=== PATIENT | male | born 1965 | race Caucasian/White ===

== ENCOUNTER 2022-10-11 16:46 | Observation (INO) ==
--- NOTE | 2022-10-11 16:59 | Emergency Department Note ---
Impression & Plan Acute hyperglycemia, Hepatitis C, History of substance abuse, H/O insulin dependent diabetes mellitus, Suicidal ideations ED Provider Note NAME: CHELSY KC AGE: 57 SEX: M : 1965 ARRIVES VIA: Walk-In INFORMANT: Patient, ED PROVIDER(S): Fabrice Pratt MD CHIEF COMPLAINT: Increasing depression MEDICAL DECISION MAKING: Patient presents due to concern for suicidal ideation and depressed mood. Blood work was obtained. Patient was not deemed medically cleared and due to the patient's history of hep C and hyperglycemia. After further discussion with the psych director of casework I did speak with the hospitalist service [place] PA-C and Dr. Mckeon. Patient does have a normal white count H&H and platelet count. The patient's kidney function is unremarkable. BSG at 314 not DKA. LFTs grossly unremarkable. Urinalysis does show protein in the urine. Patient's urine drug screen is positive for meth MDMA and marijuana. COVID-negative. Prior /Outside records reviewed: None Differential diagnosis: Mood disorder, infection, hypoglycemia, electrolyte abnormalities, cardiac sources, intracerebral event, toxicologic, trauma, neurologic, as well as other pathologies. Diagnostics, as interpreted by me: ECG: Normal sinus rhythm, rate of 94, normal intervals, normal axis no ST elevations. Cardiac monitoring: An order was placed for continuous cardiac monitoring. The monitor shows a rate of with rhythm. Patient was placed on pulse oximetry Medical decision rules: None Imaging studies: See below HPI: Patient presents due to concern for increasing depression and suicidal ideation. The patient states that he has thought about going to where he knows where a bear lives and he would go agitate it in order to get himself killed. Patient has had a longstanding history of depression and substance abuse. 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 The patient states that he has been able to quit those habits cold turkey and had been in [place] but recently moved back to the area after a bad break-up and an issue with some land that he had owned. Patient does admit to increasing methamphetamine use as well as alcohol use. Patient does have a known history of diabetes and hepatitis. Patient states that he does not know how to give his insulin when the blood sugar can always be changing. Patient does admits to some generalized abdominal discomfort and has a known history of hep C. Patient has not sought any treatment. The patient currently does live in [place]. PAST MEDICAL HISTORY: See Below PAST SURGICAL HISTORY: See Below SOCIAL HISTORY: See Below HOME MEDICATIONS: See Below ALLERGIES: See Below VITALS: See Below PHYSICAL EXAMINATION: GENERAL: NAD, wearing a mask, non-toxic. EYE EXAM: Normal conjunctiva. PERRL, no anisocoria and EOM's grossly intact w/o pain. NECK: Supple, no nuchal rigidity, no adenopathy, non-tender. No signs of menin gismus. FROM of the neck with good chin to chest and neck extension. No stridor. LUNGS: Clear to auscultation. Normal chest wall mechanics. HEART: NSR, no MRG. ABDOMEN: Abdomen soft, non-tender, no masses, no rebound or guarding. BACK: No CVA TTP. SKIN: No rashes and no bruising. UPPER EXTREMITIES: Upper extremities are grossly normal. LOWER EXTREMITIES: Grossly normal, no edema. NEURO EXAM: A&O x3, cranial nerves II-XII grossly intact, normal speech, moves all 4 extremities. Past Med/Surg History Medical History H/O insulin dependent diabetes mellitus Hepatitis C History of substance abuse Surgical History S/P appendectomy Social History Smoking Status: Former smoker Hx Alcohol Use: Yes Alcohol type: beer and hard liquor Hx Substance Use: Yes Last Used Substance: Days (ago) Last Used Substance Other:: smokes marijuana daily and snorts methamphetamine frequently Substance Use Type Other:: heroin use in past Preferred Language: Telugu Communication Ability: Effective Mechanical Unit Repairer Required: No Beliefs That Will Affect Care: None Current Living Situation: Family Current Living Situation Comment: lives with son and family Other Information That Helps Us Care for You: No Feels Safe at Home: Yes Safety Concerns: Feels Safe At This Time Gender Identity: Male Assistive Devices: None Allergies Allergies Allergy/AdvReac Type Severity Reaction Status Date / Time No Known Allergies Allergy Verified 10/11/22 18:45 Home Meds Home Medications Medication Instructions Recorded Confirmed amlodipine 5 mg tablet 5 mg PO DAILY 10/11/22 10/11/22 caffeine 200 mg tablet 200 mg PO USEASDIRECTD PRN energy 10/11/22 10/11/22 escitalopram oxalate 10 mg tablet 10 mg PO DAILY 10/11/22 10/11/22 hydroxyzine HCl 50 mg tablet 50 mg PO HS 10/11/22 10/11/22 insulin glargine 100 unit/mL (3 50 unit subcut QAM 10/11/22 10/11/22 mL) subcutaneous pen (Basaglar KwikPen U-100 Insulin) polyethylene glycol 3350 17 17 g PO DAILY PRN Constipation 10/11/22 10/11/22 gram/dose oral powder (Miralax) Results & Data (ED) Vital Signs Vital Signs - 24 hr 10/11/22 16:48 10/11/22 19:00 Temperature 36.7 C Temperature Source Temporal Artery Scan Pulse Rate 98 H Pulse Rate [Finger] 89 Respiratory Rate 20 18 Respiratory Effort / Characteristics Non-Labored Non-Labored Respiratory Depth Normal Normal Respiratory Pattern Regular Blood Pressure 147/56 H Blood Pressure [Left Arm] 170/109 H Blood Pressure Mean 86 Blood Pressure Mean [Left Arm] 129 Pulse Oximetry 98 98 Oxygen Delivery Method Room Air Room Air Sepsis Recent Fever Within 48 Hours No Sepsis New/Unexplained Change in Mental Status N/A Sepsis Action Taken by Nursing No Action Required Home Medications Current Medication List: was personally reviewed by me Laboratory Data Attestation: I reviewed the patient's lab results. 10/11/22 17:12 10/11/22 17:12 Lab Results 10/11/22 10/11/22 10/11/22 Range/Units 17:05 17:05 17:05 WBC (4.8-10.8) K/ul RBC (4.70-6.10) M/uL Hgb (14.0-18.0) g/dl Hct (42.0-52.0) % MCV (80.0-100.0) fL MCH (25.0-34.0) pg MCHC (32.0-36.0) g/dL RDW Std Deviation (36.4-46.3) fL RDW Coeff of [place] (11.5-14.5) % Plt Count (130-400) K/uL MPV (9.4-12.4) fL Immature Gran % (Auto) % Neut % (Auto) % Lymph % (Auto) % [place] % (Auto) % Eos % (Auto) % Baso % (Auto) % Neut # (Auto) (1.40-6.50) K/uL Lymph # (Auto) (1.2-3.4) K/uL [place] # (Auto) (0.11-0.59) K/uL Eos # (Auto) (0-0.50) K/uL Baso # (Auto) (0-0.2) K/uL Immature Gran # (Auto) (0.01-0.20) K/uL ESR (0-20) mm/hr Sodium (136-145) mmol/L Potassium (3.5-5.1) mmol/L Chloride (98-107) mmol/L Carbon Dioxide (21-32) mmol/L Anion Gap (3-11) BUN (6-23) mg/dl Creatinine (0.6-1.4) mg/dl Est Cr Clr Drug Dosing Est GFR ( Amer) ml/min Est GFR (Non-Af Amer) ml/min BUN/Creatinine Ratio (10-20) Glucose (70-99(Fasting)) mg/dl Calcium (8.6-10.3) mg/dl Total Bilirubin (0.2-1.0) mg/dl AST (13-39) U/L ALT (7-52) U/L Alkaline Phosphatase (34-104) U/L C-Reactive Protein (0-0.5) mg/dl Total Protein (6.0-8.3) gm/dl Albumin (3.4-5.0) gm/dl Globulin (2.5-4.0) gm/dl Albumin/Globulin Ratio (0.9-2) Procalcitonin (0-0.5) ng/ml TSH (0.300-4.500) uIu/ml Urine Color Yellow Urine Appearance Clear (Clear) Urine pH 5.5 (4.5-7.5) Ur Specific [place] 1.037 H (1.000-1.030) Urine Protein 4+ H (Negative) Urine Glucose (UA) 3+ H (Negative) Urine Ketones Trace H (Negative) Urine Blood 1+ H (Negative) Urine Nitrite Negative (Negative) Urine Bilirubin Negative (Negative) Urine Urobilinogen Negative (Negative) Ur Leukocyte Esterase Negative (Negative) Urine WBC (Auto) 1-5 (0-5) /hpf Urine RBC (Auto) 5-10 H (0-4) /hpf U Hyaline Cast (Auto) 1-5 (0-5) /lpf U Epithel Cells (Auto) 10-20 H (0-5) /lpf Urine Bacteria (Auto) Negative (Negative) Salicylates (3.0-30) mg/dl Urine Opiates Screen Neg (Neg) Ur Methadone, Qual Neg (Neg) Acetaminophen (10-30) ug/ml Urine Barbiturates Neg (Neg) Ur Phencyclidine (PCP) Neg (Neg) U Amphetamin/Meth Scrn Pos H (Neg) MDMA (Ecstasy) Screen Pos H (Neg) U Benzodiazepines Scrn Neg (Neg) Ur Cocaine Metabolite Neg (Neg) U Marijuana (THC) Screen Pos H (Neg) Ethyl Alcohol mg/dL (<10.0) mg/dl SARS-CoV-2, RNA, NAAT NEGATIVE (NEGATIVE) 10/11/22 10/11/22 10/11/22 Range/Units 17:12 17:12 17:12 WBC 9.36 (4.8-10.8) K/ul RBC 5.90 (4.70-6.10) M/uL Hgb 16.5 (14.0-18.0) g/dl Hct 46.5 (42.0-52.0) % MCV 78.8 L (80.0-100.0) fL MCH 28.0 (25.0-34.0) pg MCHC 35.5 (32.0-36.0) g/dL RDW Std Deviation 39.5 (36.4-46.3) fL RDW Coeff of [place] 13.7 (11.5-14.5) % Plt Count 247 (130-400) K/uL MPV 10.2 (9.4-12.4) fL Immature Gran % (Auto) 0.4 % Neut % (Auto) 64.2 % Lymph % (Auto) 23.9 % [place] % (Auto) 8.1 % Eos % (Auto) 2.7 % Baso % (Auto) 0.7 % Neut # (Auto) 6.00 (1.40-6.50) K/uL Lymph # (Auto) 2.24 (1.2-3.4) K/uL [place] # (Auto) 0.76 H (0.11-0.59) K/uL Eos # (Auto) 0.25 (0-0.50) K/uL Baso # (Auto) 0.07 (0-0.2) K/uL Immature Gran # (Auto) 0.04 (0.01-0.20) K/uL ESR (0-20) mm/hr Sodium 136 (136-145) mmol/L Potassium 4.3 (3.5-5.1) mmol/L Chloride 102 (98-107) mmol/L Carbon Dioxide 29 (21-32) mmol/L Anion Gap 5 (3-11) BUN 27 H (6-23) mg/dl Creatinine 1.27 (0.6-1.4) mg/dl Est Cr Clr Drug Dosing Not Reportable Est GFR ( Amer) 71.7 ml/min Est GFR (Non-Af Amer) 61.9 ml/min BUN/Creatinine Ratio 21.3 H (10-20) Glucose 314 H* (70-99(Fasting)) mg/dl Calcium 9.7 (8.6-10.3) mg/dl Total Bilirubin 1.0 (0.2-1.0) mg/dl AST 25 (13-39) U/L ALT 40 (7-52) U/L Alkaline Phosphatase 105 H (34-104) U/L C-Reactive Protein < 0.50 (0-0.5) mg/dl Total Protein 7.1 (6.0-8.3) gm/dl Albumin 3.3 L (3.4-5.0) gm/dl Globulin 3.8 (2.5-4.0) gm/dl Albumin/Globulin Ratio 0.9 (0.9-2) Procalcitonin (0-0.5) ng/ml TSH 2.626 (0.300-4.500) uIu/ml Urine Color Urine Appearance (Clear) Urine pH (4.5-7.5) Ur Specific [place] (1.000-1.030) Urine Protein (Negative) Urine Glucose (UA) (Negative) Urine Ketones (Negative) Urine Blood (Negative) Urine Nitrite (Negative) Urine Bilirubin (Negative) Urine Urobilinogen (Negative) Ur Leukocyte Esterase (Negative) Urine WBC (Auto) (0-5) /hpf Urine RBC (Auto) (0-4) /hpf U Hyaline Cast (Auto) (0-5) /lpf U Epithel Cells (Auto) (0-5) /lpf Urine Bacteria (Auto) (Negative) Salicylates (3.0-30) mg/dl Urine Opiates Screen (Neg) Ur Methadone, Qual (Neg) Acetaminophen (10-30) ug/ml Urine Barbiturates (Neg) Ur Phencyclidine (PCP) (Neg) U Amphetamin/Meth Scrn (Neg) MDMA (Ecstasy) Screen (Neg) U Benzodiazepines Scrn (Neg) Ur Cocaine Metabolite (Neg) U Marijuana (THC) Screen (Neg) Ethyl Alcohol mg/dL (<10.0) mg/dl SARS-CoV-2, RNA, NAAT (NEGATIVE) 10/11/22 10/11/22 10/11/22 Range/Units 17:12 17:12 17:12 WBC (4.8-10.8) K/ul RBC (4.70-6.10) M/uL Hgb (14.0-18.0) g/dl Hct (42.0-52.0) % MCV (80.0-100.0) fL MCH (25.0-34.0) pg MCHC (32.0-36.0) g/dL RDW Std Deviation (36.4-46.3) fL RDW Coeff of [place]el[place] (11.5-14.5) % Plt Count (130-400) K/uL MPV (9.4-12.4) fL Immature Gran % (Auto) % Neut % (Auto) % Lymph % (Auto) % [place] % (Auto) % Eos % (Auto) % Baso % (Auto) % Neut # (Auto) (1.40-6.50) K/uL Lymph # (Auto) (1.2-3.4) K/uL [place] # (Auto) (0.11-0.59) K/uL Eos # (Auto) (0-0.50) K/uL Baso # (Auto) (0-0.2) K/uL Immature Gran # (Auto) (0.01-0.20) K/uL ESR 40 H (0-20) mm/hr Sodium (136-145) mmol/L Potassium (3.5-5.1) mmol/L Chloride (98-107) mmol/L Carbon Dioxide (21-32) mmol/L Anion Gap (3-11) BUN (6-23) mg/dl Creatinine (0.6-1.4) mg/dl Est Cr Clr Drug Dosing Est GFR ( Amer) ml/min Est GFR (Non-Af Amer) ml/min BUN/Creatinine Ratio (10-20) Glucose (70-99(Fasting)) mg/dl Calcium (8.6-10.3) mg/dl Total Bilirubin (0.2-1.0) mg/dl AST (13-39) U/L ALT (7-52) U/L Alkaline Phosphatase (34-104) U/L C-Reactive Protein (0-0.5) mg/dl Total Protein (6.0-8.3) gm/dl Albumin (3.4-5.0) gm/dl Globulin (2.5-4.0) gm/dl Albumin/Globulin Ratio (0.9-2) Procalcitonin (0-0.5) ng/ml TSH (0.300-4.500) uIu/ml Urine Color Urine Appearance (Clear) Urine pH (4.5-7.5) Ur Specific [place] (1.000-1.030) Urine Protein (Negative) Urine Glucose (UA) (Negative) Urine Ketones (Negative) Urine Blood (Negative) Urine Nitrite (Negative) Urine Bilirubin (Negative) Urine Urobilinogen (Negative) Ur Leukocyte Esterase (Negative) Urine WBC (Auto) (0-5) /hpf Urine RBC (Auto) (0-4) /hpf U Hyaline Cast (Auto) (0-5) /lpf U Epithel Cells (Auto) (0-5) /lpf Urine Bacteria (Auto) (Negative) Salicylates < 3.0 L (3.0-30) mg/dl Urine Opiates Screen (Neg) Ur Methadone, Qual (Neg) Acetaminophen < 3 L (10-30) ug/ml Urine Barbiturates (Neg) Ur Phencyclidine (PCP) (Neg) U Amphetamin/Meth Scrn (Neg) MDMA (Ecstasy) Screen (Neg) U Benzodiazepines Scrn (Neg) Ur Cocaine Metabolite (Neg) U Marijuana (THC) Screen (Neg) Ethyl Alcohol mg/dL < 10.0 (<10.0) mg/dl SARS-CoV-2, RNA, NAAT (NEGATIVE) 10/11/22 Range/Units 17:12 WBC (4.8-10.8) K/ul RBC (4.70-6.10) M/uL Hgb (14.0-18.0) g/dl Hct (42.0-52.0) % MCV (80.0-100.0) fL MCH (25.0-34.0) pg MCHC (32.0-36.0) g/dL RDW Std Deviation (36.4-46.3) fL RDW Coeff of [place] (11.5-14.5) % Plt Count (130-400) K/uL MPV (9.4-12.4) fL Immature Gran % (Auto) % Neut % (Auto) % Lymph % (Auto) % [place] % (Auto) % Eos % (Auto) % Baso % (Auto) % Neut # (Auto) (1.40-6.50) K/uL Lymph # (Auto) (1.2-3.4) K/uL [place] # (Auto) (0.11-0.59) K/uL Eos # (Auto) (0-0.50) K/uL Baso # (Auto) (0-0.2) K/uL Immature Gran # (Auto) (0.01-0.20) K/uL ESR (0-20) mm/hr Sodium (136-145) mmol/L Potassium (3.5-5.1) mmol/L Chloride (98-107) mmol/L Carbon Dioxide (21-32) mmol/L Anion Gap (3-11) BUN (6-23) mg/dl Creatinine (0.6-1.4) mg/dl Est Cr Clr Drug Dosing Est GFR ( Amer) ml/min Est GFR (Non-Af Amer) ml/min BUN/Creatinine Ratio (10-20) Glucose (70-99(Fasting)) mg/dl Calcium (8.6-10.3) mg/dl Total Bilirubin (0.2-1.0) mg/dl AST (13-39) U/L ALT (7-52) U/L Alkaline Phosphatase (34-104) U/L C-Reactive Protein (0-0.5) mg/dl Total Protein (6.0-8.3) gm/dl Albumin (3.4-5.0) gm/dl Globulin (2.5-4.0) gm/dl Albumin/Globulin Ratio (0.9-2) Procalcitonin 0.09 (0-0.5) ng/ml TSH (0.300-4.500) uIu/ml Urine Color Urine Appearance (Clear) Urine pH (4.5-7.5) Ur Specific [place] (1.000-1.030) Urine Protein (Negative) Urine Glucose (UA) (Negative) Urine Ketones (Negative) Urine Blood (Negative) Urine Nitrite (Negative) Urine Bilirubin (Negative) Urine Urobilinogen (Negative) Ur Leukocyte Esterase (Negative) Urine WBC (Auto) (0-5) /hpf Urine RBC (Auto) (0-4) /hpf U Hyaline Cast (Auto) (0-5) /lpf U Epithel Cells (Auto) (0-5) /lpf Urine Bacteria (Auto) (Negative) Salicylates (3.0-30) mg/dl Urine Opiates Screen (Neg) Ur Methadone, Qual (Neg) Acetaminophen (10-30) ug/ml Urine Barbiturates (Neg) Ur Phencyclidine (PCP) (Neg) U Amphetamin/Meth Scrn (Neg) MDMA (Ecstasy) Screen (Neg) U Benzodiazepines Scrn (Neg) Ur Cocaine Metabolite (Neg) U Marijuana (THC) Screen (Neg) Ethyl Alcohol mg/dL (<10.0) mg/dl SARS-CoV-2, RNA, NAAT (NEGATIVE) Administered Medications Discontinued Medications Lactated Ringer's (Lr) 1,000 mls @ 999 mls/hr IV .Q1H1M ONE Stop: 10/11/22 20:18 Last Infusion: 10/11/22 21:40 Dose: 0 mls/hr Documented By: Admin: 10/11/22 20:26 Dose: 999 mls/hr Documented By: Thiamine HCl 100 mg/ Folic (Acid 1 mg/ Sodium Chloride) 1,001.2 mls @ 500 mls/hr IV .Q2H1M [facility]; Protocol Stop: 10/11/22 22:15 Last Admin: 10/11/22 21:15 Dose: 500 mls/hr Documented By: ELOY Multivitamins/Minerals (Cerovite Adv Formula Tab) 1 tab PO ONE STA Stop: 10/11/22 20:00 Last Admin: 10/11/22 20:24 Dose: 1 tab Documented By: Discharge Plan Visit Data Chief Complaint: Mental Health Evaluation Stated Complaint: MENTAL HEALTH ED Provider: Fabrice Pratt Discharge Problem: Acute hyperglycemia, Hepatitis C, History of substance abuse, H/O insulin dependent diabetes mellitus, Suicidal ideations Patient Disposition: Admitted As Inpatient Discharge Instructions Interventions: ED Discharge Assessment Last Done: 10/11/22 21:02
[2022-10-11 17:28] LABS: Basophils # (auto) 0.07 K/uL (0-0.2); Basophils % (auto) 0.7 %; Eosinophils # (auto) 0.25 K/uL (0-0.50); Eosinophils % (auto) 2.7 %; Hematocrit (blood only) 46.5 % (42.0-52.0); Hemoglobin 16.5 g/dl (14.0-18.0); Immature Granulocytes # (auto) 0.04 K/uL (0.01-0.20); Immature Granulocytes % (auto) 0.4 %; Lymphocytes # (auto) 2.24 K/uL (1.2-3.4); Lymphocytes % (auto) 23.9 %; Mean Corpuscular Hgb Conc 35.5 g/dL (32.0-36.0); Mean Corpuscular Volume 78.8 fL (80.0-100.0); Mean Platelet Volume 10.2 fL (9.4-12.4); Monocytes # (auto) 0.76 K/uL (0.11-0.59); Monocytes % (auto) 8.1 %; Neutrophils % (auto) 64.2 %; Platelet Count 247 K/uL (130-400); RDW Coefficient of Variation 13.7 % (11.5-14.5); RDW Standard Deviation 39.5 fL (36.4-46.3); White Blood Count 9.36 K/ul (4.8-10.8)
[2022-10-11 17:41] LABS: Appearance Urine Clear (Clear); Bacteria Urine Automated Negative (Negative); Bilirubin Urine Negative (Negative); Blood Urine 1+ (Negative); Color Urine Yellow; Glucose Urine UA 3+ (Negative); Ketones Urine Trace (Negative); Leukocyte Esterase Urine Negative (Negative); Nitrite Urine Negative (Negative); Protein Urine 4+ (Negative); Specific Gravity Urine 1.037 (1.000-1.030); Urobilinogen Urine Negative (Negative); pH Urine 5.5 (4.5-7.5)
[2022-10-11 17:44] LABS: Albumin Level 3.3 gm/dl (3.4-5.0); Anion Gap 5 (3-11); Calcium 9.7 mg/dl (8.6-10.3); Carbon Dioxide 29 mmol/L (21-32); Chloride 102 mmol/L (98-107); Potassium 4.3 mmol/L (3.5-5.1); Sodium 136 mmol/L (136-145)
[2022-10-11 17:50] LABS: Acetaminophen < 3 ug/ml (10-30); Salicylate < 3.0 mg/dl (3.0-30)
[2022-10-11 17:54] LABS: Alanine Aminotransferase 40 U/L (7-52); Albumin Globulin Ratio 0.9 (0.9-2); Alkaline Phosphatase 105 U/L (34-104); Aspartate Aminotransferase 25 U/L (13-39); BUN Creatinine Ratio 21.3 (10-20); Blood Urea Nitrogen 27 mg/dl (6-23); Est GFR (African American) 71.7 ml/min; Est GFR (Non-African American) 61.9 ml/min; Globulin 3.8 gm/dl (2.5-4.0); Glucose 314 mg/dl (70-99(Fasting)); Total Protein 7.1 gm/dl (6.0-8.3)
[2022-10-11 18:00] LABS: Amphetamines+Metham, Urine Pos (Neg); Barbiturates, Urine Neg (Neg); Benzodiazepine, Urine Neg (Neg); Cocaine, Urine Neg (Neg); MDMA (Ecstacy), Urine Pos (Neg); Methadone, Urine Neg (Neg); Opiate, Urine Neg (Neg); Phencyclidine, Urine Neg (Neg)
--- NOTE | 2022-10-11 19:09 | History & Physical Report ---
Date of Service October 11, 2022 Assessment & Plan (1) Suicidal ideations: Plan: -Admit to med/tele -Currently stable -Was brought in by his son after they initially took him to the [facility] due to suicidal and homicidal ideations -Suicide precautions, one-to-one, and Psychiatry consult placed -For now will continue his home Lexapro -Patient has multiple poorly treated or uncontrolled medical conditions which need to be stabilized before he is cleared for inpatient Psych placement -SQ lovenox for DVT PPX -AM CBC, CMP, Mag, PT/INR, A1C, and lipid panel (2) Diabetic neuropathy: Plan: -Patient has a previous history and was previously on Gabapentin but his prescription ran out -Will start him back on 100 mg TID Gabapentin for now, titrate as able (3) Hepatitis C: Plan: -Patient reports testing positive for Hep-C approximately 7-8 years ago -Previously injected meth -States he was initially setup for treatment but then left town -LFT's WNL today -Will obtain Liver US and acute hepatitis panel (4) Wound of lower extremity: Plan: -Patient has chronic wounds on the BL LE's but he appears to have cellulitis of the RLE with a noted boil -MRSA swab ordered, will obtain ESR, CRP, and Procal -Will start him on Daptomycin for now, follow MRSA swab and de-escalate if able >Will obtain CK level on admission then trend while on Dapto -Will obtain Xrays of the BL tib/fib to monitor for OM -Will obtain Arterial Doppler of the BL LE's due to his hx of DM -Wound nurse consult placed (5) H/O insulin dependent diabetes mellitus: Plan: -Monitor BSG ACHS, goal is 110-140 -Patient reportedly takes 50 units of glargine qam -For now will start with 10 units Lantus BID, CF of 50, and CR of 15 -Will obtain am A1C and lipid panel -DM II and HH diet after he gets his liver US -Pharmacy glycemic consult placed -Patient with 3+ protein in his urine today, will add on a protein:creatinine ratio (6) Alcohol abuse: Plan: -difficulty quantifying how often he really drinks and the amount each time -For now will start him on AWSS at risk protocol -Will give him a Banana bag on admission as he appears dehydrated -Will start daily PO thiamine and folic acid (7) History of substance abuse: Plan: -Patient reports current methamphetamine abuse, currently snorting -Urine tox positive for Methamphetamines, marijuana, and MDMA(Likely due to his Lexapro) -Continue to monitor on tele for now -Psychiatry and case manamgement consults placed (8) HTN (hypertension): Plan: -Stable -Continue amlodipine Plan The patient was discussed with Dr. Mckeon at the time of the admission History of Present Illness Chief Complaint: Suicidal ideations Primary Care Provider: Radha Lewisriley Roberts is a 57 year old male with a PMH significant for alcohol abuse, subs tance abuse, hepatitis C, previous incarceration, DM II, depression, HTN, who presented to the [facility] ED with family due to suicidal ideations. In the ED, vitals were stable. Labs were significant for MCV of 78, BUN of 27, glucose of 314, alk phose of 105, UA with 4+ protein, 3+ glucose, trace ketones, 1+ blood, RBC 5-10, and 10-20 epithelial cells, and Urine tox screen negative for salicylates, acetaminophen, alcohol, but positive for amphetamines, MDMA, and marijuana. We were asked to admit the patient to our service for medical clearance with is complex medical history. At the time of the exam the patient was lying in bed in no acute distress. He states that his son initially tried to bring him to the [facility] earlier today as he has been having suicidal and homicidal ideations. When asked to elaborate, he states that "my life is in a tailspin and I can make it stop". He states that his ex girlfriend and her new boyfriend are living in his old home and on his land. He states that he is also mad at his old employer for firing him. He planned to go into a local cave where he knows bears frequent in an attempt to get them to attack/kill him. He states that he has thoughts of harming his ex GF and her new boyfriend but no plans at this time. He confirms that he has a hx of anxiety/depress, previous tobacco abuse (quit 20 years ago), HTN, and substance abuse. He has recently been snorting methamphetamine and smoking marijuana daily. He states he drinks approximately 3-4 days a week. When asked about his alcohol of choice, he tells me he makes his own whiskey and that it's "200 proof". He was unable to adequately quantify how much he drinks in a day but states that his last drink was this am. His last drink was a beer on the way to the ED due to anxiety. He states he last used meth approximately 2 days ago. He has chronic LE pain/neuropathy and states that he frequently gets wounds on the lower legs. They start as boils and eventually pop/drain clear fluid. He denies recent fever, chills, chest pain, SOB, cough, nausea, vomiting, dysuria, hematuria, melena, and recent trauma. When asked, he states that he was told he was Hepatitis-C positive approximately 7-8 years ago. He was setup to start treatment but then "ran away with a woman". He states that he wants to get his life back on track and is interested in being seen by our psychiatric team. Please refer to Dr. Mckeon's attestation for any changes to the treatment plan Allergies Allergy/AdvReac Type Severity Reaction Status Date / Time No Known Allergies Allergy Verified 10/11/22 18:45 Home Medications Medication Instructions Recorded Confirmed Type amlodipine 5 mg tablet 5 mg PO DAILY 10/11/22 10/11/22 History caffeine 200 mg tablet 200 mg PO USEASDIRECTD PRN energy 10/11/22 10/11/22 History escitalopram oxalate 10 mg tablet 10 mg PO DAILY 10/11/22 10/11/22 History hydroxyzine HCl 50 mg tablet 50 mg PO HS 10/11/22 10/11/22 History insulin glargine 100 unit/mL (3 50 unit subcut QAM 10/11/22 10/11/22 History mL) subcutaneous pen (Basaglar KwikPen U-100 Insulin) polyethylene glycol 3350 17 17 g PO DAILY PRN Constipation 10/11/22 10/11/22 History gram/dose oral powder (Miralax) Past Med/Surg History Medical History H/O insulin dependent diabetes mellitus Hepatitis C History of substance abuse Surgical History S/P appendectomy Social History Smoking Status: Former smoker Hx Alcohol Use: Yes Alcohol type: beer and hard liquor Hx Substance Use: Yes Last Used Substance: Days (ago) Last Used Substance Other:: smokes marijuana daily and snorts methamphetamine frequently Substance Use Type Other:: heroin use in past Preferred Language: Senegalese Communication Ability: Effective Edge Burnisher Uppers Required: No Beliefs That Will Affect Care: None Current Living Situation: Family Current Living Situation Comment: lives with son and family Other Information That Helps Us Care for You: No Feels Safe at Home: Yes Safety Concerns: Feels Safe At This Time Gender Identity: Male Assistive Devices: None Physical Exam Physical Exam: Physical Exam: General: In no acute distress, stated age, poor hygiene, chronically ill but non-toxic HEENT: Normocephalic, atraumatic, no scleral icterus, pupils around round, symmetrical, and reactive to light, dry mucus membranes, trachea midline, no thyromegaly Chest/Pulm: No respiratory distress, symmetrical chest expansion, clear breath sounds throughout Cardiac: RRR, no murmurs noted Abdomen: Negative for ascites and bruising, normoactive bowel sounds, soft, tender to palpation in the RUQ, negative reinoso's sign Musculoskeletal: No acute trauma, able to move upper and lower extremities voluntarily without limitation Extremities: Radial, dorsalis pedis, and posterior tibial pulses are intact and symmetrical, no edema noted in the BL LE's Skin: Patient with multiple chronic wounds on the BL LE's in various stages of healing, currently with a boil distal to the right patella which has not broken open, some open chronic wounds on the BL feet and shins in various stages of healing Neuro: Alert and oriented to person, place, month, year, no focal defects, CN II-XII tested and intact, no tremors noted Psych: No acute distress, calm, polite, and cooperative during the exam Results & Data Results & Data Vital Signs (Past 12 Hours) Vital Signs Temp Pulse Resp BP Pulse Ox O2 Del Method 10/11/22 16:48 36.7 C 98 H 20 147/56 H 98 Room Air Laboratory Results Abnormal lab results 10/11/22 10/11/22 10/11/22 Range/Units 17:05 17:05 17:12 MCV 78.8 L (80.0-100.0) fL Barber # (Auto) 0.76 H (0.11-0.59) K/uL ESR (0-20) mm/hr BUN (6-23) mg/dl BUN/Creatinine Ratio (10-20) Glucose (70-99(Fasting)) mg/dl POC Glucose (70-99) mg/dl Alkaline Phosphatase (34-104) U/L Albumin (3.4-5.0) gm/dl Ur Specific [place] 1.037 H (1.000-1.030) Urine Protein 4+ H (Negative) Urine Glucose (UA) 3+ H (Negative) Urine Ketones Trace H (Negative) Urine Blood 1+ H (Negative) Urine RBC (Auto) 5-10 H (0-4) /hpf U Epithel Cells (Auto) 10-20 H (0-5) /lpf Salicylates (3.0-30) mg/dl Acetaminophen (10-30) ug/ml U Amphetamin/Meth Scrn Pos H (Neg) MDMA (Ecstasy) Screen Pos H (Neg) U Marijuana (THC) Screen Pos H (Neg) 10/11/22 10/11/22 10/11/22 Range/Units 17:12 17:12 17:12 MCV (80.0-100.0) fL Barber # (Auto) (0.11-0.59) K/uL ESR 40 H (0-20) mm/hr BUN 27 H (6-23) mg/dl BUN/Creatinine Ratio 21.3 H (10-20) Glucose 314 H* (70-99(Fasting)) mg/dl POC Glucose (70-99) mg/dl Alkaline Phosphatase 105 H (34-104) U/L Albumin 3.3 L (3.4-5.0) gm/dl Ur Specific [place] (1.000-1.030) Urine Protein (Negative) Urine Glucose (UA) (Negative) Urine Ketones (Negative) Urine Blood (Negative) Urine RBC (Auto) (0-4) /hpf U Epithel Cells (Auto) (0-5) /lpf Salicylates < 3.0 L (3.0-30) mg/dl Acetaminophen < 3 L (10-30) ug/ml U Amphetamin/Meth Scrn (Neg) MDMA (Ecstasy) Screen (Neg) U Marijuana (THC) Screen (Neg) 06/18/23 Range/Units 19:56 MCV (80.0-100.0) fL Barber # (Auto) (0.11-0.59) K/uL ESR (0-20) mm/hr BUN (6-23) mg/dl BUN/Creatinine Ratio (10-20) Glucose (70-99(Fasting)) mg/dl POC Glucose 237 H (70-99) mg/dl Alkaline Phosphatase (34-104) U/L Albumin (3.4-5.0) gm/dl Ur Specific [place] (1.000-1.030) Urine Protein (Negative) Urine Glucose (UA) (Negative) Urine Ketones (Negative) Urine Blood (Negative) Urine RBC (Auto) (0-4) /hpf U Epithel Cells (Auto) (0-5) /lpf Salicylates (3.0-30) mg/dl Acetaminophen (10-30) ug/ml U Amphetamin/Meth Scrn (Neg) MDMA (Ecstasy) Screen (Neg) U Marijuana (THC) Screen (Neg) ECG Additional Comments: Normal sinus rhythm Normal ECG No previous ECGs available Code Status & VTE Plan Code Status Full code VTE Prophylaxis Plan VTE Prophylaxis will be ordered: Yes Supervising Physician Co-Signing Physician Notes Patient seen and examined, chart reviewed, case discussed with WAYNE Hills and I agree with the assessment and plan as above. In brief, patient is a 57yo male with EtOH and substance abuse, DM, Depression and HTN presenting at the request of his son due to suicidal ideation. Patient reports difficulty taking care of his health. In the ER he is afebrile, HD stable Gen - resting comfortably, NAD Skin - scarring on bilateral LE, open blistering lesions on right terry with some mild warmth and redness, no crepitus HEENT - MMM, Neck supple Heart - +S1/S2, regular Lungs - CTA anteriorly Abd - soft, NT/ND Ext- warm, well perfused, trace pitting edema Labs and images reviewed Assessment/Plan: -Suicide precautions -Psychiatry consultation -Continue Lexapro -Resume Gabapentin - patient reports severe pain in his bilateral feet and hands -Liver US - patient with history of untreated HCV. Consider AFP test as well -Daptomycin for RLE cellulitis -Remainder as above PG Care Time/CCT Total # of Minutes Spent Total Time Spent with Patient: Total time spent is greater than 50% in coordination of care (as documented) at patient's floor/unit and/or counseling patient: Coding [place] [address] INT INP/OBS CARE 3/75MIN Patient Type Established Medical Decision Making High Complexity Diagnoses Suicidal ideations R45.851 Diabetic neuropathy E11.40 Hepatitis C B19.20 Wound of lower extremity S81.809A H/O insulin dependent diabetes mellitus Z86.39 Alcohol abuse F10.10 History of substance abuse F19.11 HTN (hypertension) I10
[2022-10-11] MEDS ORDERED: LACTATED RINGER'S 1,000 ML IV ONE (19:18)
[2022-10-11] MEDS ORDERED: DEXTROSE 50% 50 ML SYRINGE IV PRN (19:22)
[2022-10-11] MEDS ORDERED: GLUCOSE 40% GEL 15 GM TUBE PO PRN (19:22)
[2022-10-11] MEDS ORDERED: GLUCOSE 10 TAB/TUBE PO PRN (19:22)
[2022-10-11] MEDS ORDERED: GLUCAGON FOR INJ 1 MG VIAL SQ PRN (19:22)
[2022-10-11] MEDS ORDERED: CARBOHYDRATES FOR HYPOGLYCEMIA PO PRN (19:22)
[2022-10-11] MEDS ORDERED: PHARMACY GLYCEMIC MGMT CONSULT PRN (19:22)
[2022-10-11] MEDS ORDERED: CEROVITE ADV FORMULA TAB PO STA (19:59)
[2022-10-11] MEDS ORDERED: LORazepam 1 MG TAB PO PRN (19:59)
[2022-10-11] MEDS ORDERED: THIAMINE HCL 100 MG, FOLIC ACID 1 MG in SODIUM CHLORIDE 0.9% 1000ML 1,000 ML IV SCH (20:15)
[2022-10-11 20:43] LABS: C Reactive Protein < 0.50 mg/dl (0-0.5)
[2022-10-11] MEDS ORDERED: LANTUS PER UNIT CHARGE SQ ONE (21:15)
[2022-10-11] MEDS ORDERED: INSULIN ASPART PER UNIT CHARGE SC SCH ×2 (21:15)
[2022-10-11 21:21] LABS: Creatinine Urine Random 107.2 mg/dl; Protein Creatinine Ratio Urine 7.1 (0-0.2); Total Protein Urine Random 760.4 mg/dl (0-11.9)
[2022-10-11] MEDS: DAPTOmycin 300 MG in SYRINGE 0 ML IV SCH (22:47)
[2022-10-11] MEDS: ACETAMINOPHEN 325 MG TAB PO PRN (22:47)
[2022-10-11] MEDS: GABAPENTIN 100 MG CAP PO SCH (22:47)
[2022-10-11] MEDS: INSULIN ASPART PER UNIT CHARGE SC SCH (22:48)
--- NOTE | 2022-10-11 23:08 | XRay Report ---
RIGHT TIBIA AND FIBULA 2 VIEWS CLINICAL HISTORY: Chronic wounds. FINDINGS: AP and lateral views of the right tibia and fibula are obtained. No prior studies are avail able for comparison at the time of dictation. The skeletal structures are osteopenic. No fracture is seen. There is no bony erosion or periostitis. The knee and ankle joints are grossly maintained. Ther e is generalized atrophy of the regional soft tissues. Soft tissue edema is seen throughout the right lower extremity. No soft tissue gas or radiodense foreign body is identified. IMPRESSION: Soft tissue swelling with no acute bony abnormality identified. Electronically signed by: Vu Tovar M.D. 10/11/2022 11:06 PM
--- NOTE | 2022-10-11 23:08 | XRay Report ---
SINGLE VIEW CHEST CLINICAL HISTORY: Dyspnea FINDINGS: An AP, portable, upright chest radiograph is obtained. No prior studies are available for c omparison at the time of dictation. The cardiomediastinal silhouette is unremarkable. There is mild b ibasilar scarring/atelectasis. The lungs and pleural spaces are otherwise clear. No pneumothorax is s een. The skeletal structures are osteopenic. The bony thorax is grossly intact. IMPRESSION: No active disease in the chest. ACT 112: Negative or not required by law. Electronically signed by: Vu Tovar M.D. 10/11/2022 11:07 PM
--- NOTE | 2022-10-11 23:10 | XRay Report ---
KUB CLINICAL HISTORY: Generalized abdominal pain. FINDINGS: 2 AP, portable, supine abdominal radiographs are obtained. No prior studies are available f or comparison at the time of dictation. There is a nonobstructed abdominal bowel gas pattern. No evid ence of intraperitoneal free air is seen on these supine images. There are no abnormal abdominal calc ifications. The skeletal structures are osteopenic and grossly intact. There is mild lumbosacral spon dylosis. IMPRESSION: No acute abnormality is identified. Electronically signed by: Vu Tovar M.D. 10/11/2022 11:08 PM
[2022-10-11] MEDS: ENOXAPARIN INJ 40 MG/0.4 ML SYR SQ SCH (23:14)
[2022-10-12] MEDS: INSULIN ASPART PER UNIT CHARGE SC SCH ×5 (03:51→20:26)
--- NOTE | 2022-10-12 07:07 | Ultrasound Report ---
US arterial duplex LE BI HISTORY: 57 years-old Male Hx of diabetes with chronic LE wounds chronic diabetic ulcers of the lowe r extremities COMPARISON: None TECHNIQUE: Multiple real-time sonographic images of the lower extremity arterial structures were obta ined assessing grayscale appearance, color and spectral flow. Segmental pressures also obtained. FINDINGS: SEGMENTAL PRESSURES: RIGHT: Brachial-160; dorsalis pedis-186 (1.16); posterior tibial-204 (1.27); CAITLIN-1.27 LEFT: Brachial-147; dorsalis pedis-190 (1.19); posterior tibial-188 (1.18); CAITLIN-1.19 RIGHT: Triphasic waveforms. No arterial occlusion or elevated peak systolic velocities to suggest high-grade stenosis. LEFT: Triphasic waveforms. No arterial occlusion or elevated peak systolic velocities to suggest high-grade stenosis. IMPRESSION: 1. Normal ABIs. 2. Triphasic waveforms without arterial occlusion or high-grade stenosis. ACT 112: Negative or not required by law. The above report was generated using voice recognition software. It may contain grammatical, syntax o r spelling errors. Electronically signed by: Tristna Ruiz M.D. 10/12/2022 7:05 AM
--- NOTE | 2022-10-12 07:36 | Ultrasound Report ---
US liver CLINICAL HISTORY: hx alcoholism and untreated hepatitis w/ abdominal pain COMPARISON STUDY: KUB October 11, 2022. FINDINGS: No hepatic lesions are identified. The liver is not cirrhotic by sonography. There is no bi liary ductal dilatation. The common bile duct measures 3 mm in caliber. The gallbladder is mildly dis tended. There is no gallbladder wall thickening. No gallstones are identified. No sonographic Kebede sign. Pancreas is largely obscured by overlying bowel gas. There is no right hydronephrosis. IMPRESSION: 1. No gallstones or biliary ductal dilatation. Mildly distended gallbladder. No evidence for acute ch olecystitis. 2. No hepatic lesions. Liver not cirrhotic by sonography. ACT 112: Negative or not required by law. Electronically signed by: Jamshid Knowles M.D. 10/12/2022 7:35 AM
[2022-10-12] MEDS: THIAMINE HCL 100 MG TAB PO SCH (08:13)
[2022-10-12] MEDS: FOLIC ACID 1 MG TAB PO SCH (08:13)
[2022-10-12] MEDS: amLODIPine BESYLATE 5 MG TAB PO SCH (08:13)
[2022-10-12] MEDS: GABAPENTIN 100 MG CAP PO SCH ×2 (08:13→13:02)
[2022-10-12 08:22] LABS: Basophils # (auto) 0.07 K/uL (0-0.2); Eosinophils # (auto) 0.28 K/uL (0-0.50); Eosinophils % (auto) 3.9 %; Hematocrit (blood only) 43.1 % (42.0-52.0); Hemoglobin 15.5 g/dl (14.0-18.0); Immature Granulocytes # (auto) 0.01 K/uL (0.01-0.20); Immature Granulocytes % (auto) 0.1 %; Lymphocytes # (auto) 2.01 K/uL (1.2-3.4); Mean Corpuscular Hemoglobin 28.1 pg (25.0-34.0); Mean Corpuscular Volume 78.1 fL (80.0-100.0); Mean Platelet Volume 9.8 fL (9.4-12.4); Monocytes % (auto) 8.4 %; Neutrophils % (auto) 58.6 %; Platelet Count 216 K/uL (130-400); RDW Coefficient of Variation 13.7 % (11.5-14.5); RDW Standard Deviation 38.6 fL (36.4-46.3); Red Blood Count 5.52 M/uL (4.70-6.10); White Blood Count 7.17 K/ul (4.8-10.8)
[2022-10-12 08:35] LABS: Albumin Globulin Ratio 0.8 (0.9-2); Albumin Level 2.7 gm/dl (3.4-5.0); BUN Creatinine Ratio 22.8 (10-20); Bilirubin,Total 0.8 mg/dl (0.2-1.0); Calcium 9.2 mg/dl (8.6-10.3); Chol HDL Ratio 8.2 (0-5); Creatinine Clr Calc Pharmacy 88.2 ml/min; Est GFR (African American) 94.6 ml/min; Est GFR (Non-African American) 81.6 ml/min; Globulin 3.3 gm/dl (2.5-4.0); Magnesium 1.8 mg/dl (1.7-2.4); Potassium 3.8 mmol/L (3.5-5.1)
[2022-10-12 08:47] LABS: Prothrombin Time 10.6 Seconds (9.0-12.0)
[2022-10-12] MEDS ORDERED: ESCITALOPRAM OXALATE 10 MG TAB PO SCH (09:00)
--- NOTE | 2022-10-12 09:18 | Psychiatric Consultation ---
Date of Consultation October 12, 2022 Impression / Recommendations Impression 57 yo male with long hx of substance abuse, depressive symptoms, decline in caring for self complicating underlying medical. Denies active SI in hospital but would benefit from inpatient psychiatric admission when medically cleared. Patient likely minimizing his psychological and physiologic dependence on substances and at risk for ETOH withdrawal. (1) Major depression: (2) Polysubstance abuse: Plan will perform full MSE within next 24 hrs. likely inpatient mental health when medically cleared though depending on timing and medical needs outpatient may be viable option I would not add an antidepressant acutely on med floor as no immediate effects signed ZAIDA for collateral from son, no immediate indication for 302 petition/warrant Psych History Identifying Data 57 yo male initially presented to the [facility] for mental health assessment of depression. Due to poor compliance with multiple medical conditions was sent to ED and admit medically. Consult is by hospitalist service. Chief Complaint level of care assessment History of Present Illness Patient with a 20+ year history of drug abuse, initially heroin following use of prescribed opiates, later alcohol and meth. He expressed guilt to ED for CM for essentially abandoning son due to drug use/moves and now inability to contribute given physical limitations such as neuropathy. He has been using meth q 2-3 weeks for the past year and makes his own high proof alcohol which he consumes in unknown amount. He also uses MJ daily. He reported self-medicating his depression with symptoms such as hopelessness and vegatative symptoms. He is noncompliant with his medications due to forgetfulness per report of son. Patient remains focussed on past occupational exposures as cause of his ulcerations/neuropathy rather than vascular causes or substances. He has reported thoughts to kill self in fall by instigating a hibernating bear. Denies active intent/plan to harm self but doesn't care if he doesn't wake up. Past Psychiatric History Previous Psych History: used Klonopin and ephedrine in distant past. Current Psychiatric Diagnosis: Depression, Aniexty Previous Psych Admissions: none Do You Have Access To A Gun?: No (son secured) History of Previous Suicide Attempt: No Allergies Allergy/AdvReac Type Severity Reaction Status Date / Time No Known Allergies Allergy Verified 10/11/22 18:45 Home Medications Medication Instructions Recorded Confirmed Type amlodipine 5 mg tablet 5 mg PO DAILY 10/11/22 10/11/22 History caffeine 200 mg tablet 200 mg PO USEASDIRECTD PRN energy 10/11/22 10/11/22 History escitalopram oxalate 10 mg tablet 10 mg PO DAILY 10/11/22 10/11/22 History hydroxyzine HCl 50 mg tablet 50 mg PO HS 10/11/22 10/11/22 History insulin glargine 100 unit/mL (3 50 unit subcut QAM 10/11/22 10/11/22 History mL) subcutaneous pen (Basaglar KwikPen U-100 Insulin) polyethylene glycol 3350 17 17 g PO DAILY PRN Constipation 10/11/22 10/11/22 History gram/dose oral powder (Miralax) Patient History Medical History H/O insulin dependent diabetes mellitus Hepatitis C History of substance abuse Surgical History S/P appendectomy Social History Smoking Status: Former smoker Hx Alcohol Use: Yes Alcohol type: beer and hard liquor Hx Substance Use: Yes Last Used Substance: Days (ago) Last Used Substance Other:: smokes marijuana daily and snorts methamphetamine frequently Substance Use Type Other:: heroin use in past Preferred Language: Sudanese Communication Ability: Effective Supply Chain Business Analyst Required: No Beliefs That Will Affect Care: None Current Living Situation: Family Current Living Situation Comment: lives with son and family Other Information That Helps Us Care for You: No Feels Safe at Home: Yes Safety Concerns: Feels Safe At This Time Gender Identity: Male Assistive Devices: None Physical Exam Psychiatric: patient is currently sleeping, will reassess. note PHQ-9=20. #2 on #9 for thoughts he'd be better off Vital Signs (Past 24 Hours): Last Vital Signs Temp 36.4 C L 10/12/22 07:48 Pulse 84 10/12/22 07:48 Resp 18 10/12/22 07:48 BP 134/71 10/12/22 07:48 Pulse Ox 96 10/12/22 07:48 O2 Del Method Room Air 10/12/22 07:48 Review of Systems Other Results & Data (PSY) Laboratory Results 06/19/23 06/19/23 06/19/23 Range/Units 11:18 07:51 07:51 WBC (4.8-10.8) K/ul RBC (4.70-6.10) M/uL Hgb (14.0-18.0) g/dl Hct (42.0-52.0) % MCV (80.0-100.0) fL MCH (25.0-34.0) pg MCHC (32.0-36.0) g/dL RDW Std Deviation (36.4-46.3) fL RDW Coeff of [place]elario (11.5-14.5) % Plt Count (130-400) K/uL MPV (9.4-12.4) fL Immature Gran % (Auto) % Neut % (Auto) % Lymph % (Auto) % Stanton % (Auto) % Eos % (Auto) % Baso % (Auto) % Neut # (Auto) (1.40-6.50) K/uL Lymph # (Auto) (1.2-3.4) K/uL [place] # (Auto) (0.11-0.59) K/uL Eos # (Auto) (0-0.50) K/uL Baso # (Auto) (0-0.2) K/uL Immature Gran # (Auto) (0.01-0.20) K/uL ESR (0-20) mm/hr PT 10.6 (9.0-12.0) Seconds INR 1.0 (0.9-1.1) Sodium (136-145) mmol/L Potassium (3.5-5.1) mmol/L Chloride (98-107) mmol/L Carbon Dioxide (21-32) mmol/L Anion Gap (3-11) BUN (6-23) mg/dl Creatinine (0.6-1.4) mg/dl Est Cr Clr Drug Dosing Est GFR ( Amer) ml/min Est GFR (Non-Af Amer) ml/min BUN/Creatinine Ratio (10-20) Glucose (70-99(Fasting)) mg/dl POC Glucose 123 H (70-99) mg/dl Estimat Average Glucose 217 mg/dl Hemoglobin A1c 9.2 H (4.5-5.6) % Calcium (8.6-10.3) mg/dl Magnesium (1.7-2.4) mg/dl Total Bilirubin (0.2-1.0) mg/dl AST (13-39) U/L ALT (7-52) U/L Alkaline Phosphatase (34-104) U/L Total Creatine Kinase (30-223) U/L C-Reactive Protein (0-0.5) mg/dl Total Protein (6.0-8.3) gm/dl Albumin (3.4-5.0) gm/dl Globulin (2.5-4.0) gm/dl Albumin/Globulin Ratio (0.9-2) Triglycerides (0-150) mg/dl Cholesterol (0-200) mg/dl LDL Cholesterol, Calc mg/dl VLDL Cholesterol, Calc (0-30) mg/dl HDL Cholesterol mg/dl Cholesterol/HDL Ratio (0-5) Procalcitonin (0-0.5) ng/ml TSH (0.300-4.500) uIu/ml Urine Color Urine Appearance (Clear) Urine pH (4.5-7.5) Ur Specific [place] (1.000-1.030) Urine Protein (Negative) Urine Glucose (UA) (Negative) Urine Ketones (Negative) Urine Blood (Negative) Urine Nitrite (Negative) Urine Bilirubin (Negative) Urine Urobilinogen (Negative) Ur Leukocyte Esterase (Negative) Urine WBC (Auto) (0-5) /hpf Urine RBC (Auto) (0-4) /hpf U Hyaline Cast (Auto) (0-5) /lpf U Epithel Cells (Auto) (0-5) /lpf Urine Bacteria (Auto) (Negative) Ur Random Creatinine mg/dl U Random Total Protein (0-11.9) mg/dl Protein/Creatinin Ratio (0-0.2) Nasal Screen MRSA (PCR) (Negative) Salicylates (3.0-30) mg/dl Urine Opiates Screen (Neg) Ur Methadone, Qual (Neg) Acetaminophen (10-30) ug/ml Urine Barbiturates (Neg) Ur Phencyclidine (PCP) (Neg) U Amphetamines Confirm U Amphetamin/Meth Scrn (Neg) U Methamphetamin Confrm Urine MDEA MDMA (Ecstasy) Screen (Neg) MDMA Urine MDMA U Benzodiazepines Scrn (Neg) Ur Cocaine Metabolite (Neg) U Marijuana (THC) Screen (Neg) U Marijuana THC Carboxy Drug Screen Comment Ethyl Alcohol mg/dL (<10.0) mg/dl Hepatitis A IgM Ab Hep Bs Antigen Hep Bs Ag Confirmation Hep B Core IgM Ab Hepatitis C Ab (EIA) Hep C Ab Signal/Cutoff SARS-CoV-2, RNA, NAAT (NEGATIVE) 10/12/22 10/12/22 10/12/22 Range/Units 07:51 07:51 07:51 WBC 7.17 (4.8-10.8) K/ul RBC 5.52 (4.70-6.10) M/uL Hgb 15.5 (14.0-18.0) g/dl Hct 43.1 (42.0-52.0) % MCV 78.1 L (80.0-100.0) fL MCH 28.1 (25.0-34.0) pg MCHC 36.0 (32.0-36.0) g/dL RDW Std Deviation 38.6 (36.4-46.3) fL RDW Coeff of [place]el[place] 13.7 (11.5-14.5) % Plt Count 216 (130-400) K/uL MPV 9.8 (9.4-12.4) fL Immature Gran % (Auto) 0.1 % Neut % (Auto) 58.6 % Lymph % (Auto) 28.0 % Stanton % (Auto) 8.4 % Eos % (Auto) 3.9 % Baso % (Auto) 1.0 % Neut # (Auto) 4.20 (1.40-6.50) K/uL Lymph # (Auto) 2.01 (1.2-3.4) K/uL Stanton # (Auto) 0.60 H (0.11-0.59) K/uL Eos # (Auto) 0.28 (0-0.50) K/uL Baso # (Auto) 0.07 (0-0.2) K/uL Immature Gran # (Auto) 0.01 (0.01-0.20) K/uL ESR (0-20) mm/hr PT (9.0-12.0) Seconds INR (0.9-1.1) Sodium 140 (136-145) mmol/L Potassium 3.8 (3.5-5.1) mmol/L Chloride 108 H (98-107) mmol/L Carbon Dioxide 29 (21-32) mmol/L Anion Gap 3 (3-11) BUN 23 (6-23) mg/dl Creatinine 1.01 (0.6-1.4) mg/dl Est Cr Clr Drug Dosing 88.2 Est GFR ( Amer) 94.6 ml/min Est GFR (Non-Af Amer) 81.6 ml/min BUN/Creatinine Ratio 22.8 H (10-20) Glucose 71 (70-99(Fasting)) mg/dl POC Glucose (70-99) mg/dl Estimat Average Glucose mg/dl Hemoglobin A1c (4.5-5.6) % Calcium 9.2 (8.6-10.3) mg/dl Magnesium 1.8 (1.7-2.4) mg/dl Total Bilirubin 0.8 (0.2-1.0) mg/dl AST 28 (13-39) U/L ALT 36 (7-52) U/L Alkaline Phosphatase 83 (34-104) U/L Total Creatine Kinase 72 (30-223) U/L C-Reactive Protein (0-0.5) mg/dl Total Protein 6.0 (6.0-8.3) gm/dl Albumin 2.7 L (3.4-5.0) gm/dl Globulin 3.3 (2.5-4.0) gm/dl Albumin/Globulin Ratio 0.8 L (0.9-2) Triglycerides 208 H (0-150) mg/dl Cholesterol 237 H (0-200) mg/dl LDL Cholesterol, Calc 166 mg/dl VLDL Cholesterol, Calc 42 H (0-30) mg/dl HDL Cholesterol 29 mg/dl Cholesterol/HDL Ratio 8.2 H (0-5) Procalcitonin (0-0.5) ng/ml TSH (0.300-4.500) uIu/ml Urine Color Urine Appearance (Clear) Urine pH (4.5-7.5) Ur Specific [place] (1.000-1.030) Urine Protein (Negative) Urine Glucose (UA) (Negative) Urine Ketones (Negative) Urine Blood (Negative) Urine Nitrite (Negative) Urine Bilirubin (Negative) Urine Urobilinogen (Negative) Ur Leukocyte Esterase (Negative) Urine WBC (Auto) (0-5) /hpf Urine RBC (Auto) (0-4) /hpf U Hyaline Cast (Auto) (0-5) /lpf U Epithel Cells (Auto) (0-5) /lpf Urine Bacteria (Auto) (Negative) Ur Random Creatinine mg/dl U Random Total Protein (0-11.9) mg/dl Protein/Creatinin Ratio (0-0.2) Nasal Screen MRSA (PCR) (Negative) Salicylates (3.0-30) mg/dl Urine Opiates Screen (Neg) Ur Methadone, Qual (Neg) Acetaminophen (10-30) ug/ml Urine Barbiturates (Neg) Ur Phencyclidine (PCP) (Neg) U Amphetamines Confirm U Amphetamin/Meth Scrn (Neg) U Methamphetamin Confrm Urine MDEA MDMA (Ecstasy) Screen (Neg) MDMA Urine MDMA U Benzodiazepines Scrn (Neg) Ur Cocaine Metabolite (Neg) U Marijuana (THC) Screen (Neg) U Marijuana THC Carboxy Drug Screen Comment Ethyl Alcohol mg/dL (<10.0) mg/dl Hepatitis A IgM Ab Pending Hep Bs Antigen Pending Hep Bs Ag Confirmation Pending Hep B Core IgM Ab Pending Hepatitis C Ab (EIA) Pending Hep C Ab Signal/Cutoff Pending SARS-CoV-2, RNA, NAAT (NEGATIVE) 10/12/22 10/12/22 10/11/22 Range/Units 07:47 03:50 21:46 WBC (4.8-10.8) K/ul RBC (4.70-6.10) M/uL Hgb (14.0-18.0) g/dl Hct (42.0-52.0) % MCV (80.0-100.0) fL MCH (25.0-34.0) pg MCHC (32.0-36.0) g/dL RDW Std Deviation (36.4-46.3) fL RDW Coeff of Candelario (11.5-14.5) % Plt Count (130-400) K/uL MPV (9.4-12.4) fL Immature Gran % (Auto) % Neut % (Auto) % Lymph % (Auto) % [place] % (Auto) % Eos % (Auto) % Baso % (Auto) % Neut # (Auto) (1.40-6.50) K/uL Lymph # (Auto) (1.2-3.4) K/uL [place] # (Auto) (0.11-0.59) K/uL Eos # (Auto) (0-0.50) K/uL Baso # (Auto) (0-0.2) K/uL Immature Gran # (Auto) (0.01-0.20) K/uL ESR (0-20) mm/hr PT (9.0-12.0) Seconds INR (0.9-1.1) Sodium (136-145) mmol/L Potassium (3.5-5.1) mmol/L Chloride (98-107) mmol/L Carbon Dioxide (21-32) mmol/L Anion Gap (3-11) BUN (6-23) mg/dl Creatinine (0.6-1.4) mg/dl Est Cr Clr Drug Dosing Est GFR ( Amer) ml/min Est GFR (Non-Af Amer) ml/min BUN/Creatinine Ratio (10-20) Glucose (70-99(Fasting)) mg/dl POC Glucose 75 97 235 H (70-99) mg/dl Estimat Average Glucose mg/dl Hemoglobin A1c (4.5-5.6) % Calcium (8.6-10.3) mg/dl Magnesium (1.7-2.4) mg/dl Total Bilirubin (0.2-1.0) mg/dl AST (13-39) U/L ALT (7-52) U/L Alkaline Phosphatase (34-104) U/L Total Creatine Kinase (30-223) U/L C-Reactive Protein (0-0.5) mg/dl Total Protein (6.0-8.3) gm/dl Albumin (3.4-5.0) gm/dl Globulin (2.5-4.0) gm/dl Albumin/Globulin Ratio (0.9-2) Triglycerides (0-150) mg/dl Cholesterol (0-200) mg/dl LDL Cholesterol, Calc mg/dl VLDL Cholesterol, Calc (0-30) mg/dl HDL Cholesterol mg/dl Cholesterol/HDL Ratio (0-5) Procalcitonin (0-0.5) ng/ml TSH (0.300-4.500) uIu/ml Urine Color Urine Appearance (Clear) Urine pH (4.5-7.5) Ur Specific [place] (1.000-1.030) Urine Protein (Negative) Urine Glucose (UA) (Negative) Urine Ketones (Negative) Urine Blood (Negative) Urine Nitrite (Negative) Urine Bilirubin (Negative) Urine Urobilinogen (Negative) Ur Leukocyte Esterase (Negative) Urine WBC (Auto) (0-5) /hpf Urine RBC (Auto) (0-4) /hpf U Hyaline Cast (Auto) (0-5) /lpf U Epithel Cells (Auto) (0-5) /lpf Urine Bacteria (Auto) (Negative) Ur Random Creatinine mg/dl U Random Total Protein (0-11.9) mg/dl Protein/Creatinin Ratio (0-0.2) Nasal Screen MRSA (PCR) (Negative) Salicylates (3.0-30) mg/dl Urine Opiates Screen (Neg) Ur Methadone, Qual (Neg) Acetaminophen (10-30) ug/ml Urine Barbiturates (Neg) Ur Phencyclidine (PCP) (Neg) U Amphetamines Confirm U Amphetamin/Meth Scrn (Neg) U Methamphetamin Confrm Urine MDEA MDMA (Ecstasy) Screen (Neg) MDMA Urine MDMA U Benzodiazepines Scrn (Neg) Ur Cocaine Metabolite (Neg) U Marijuana (THC) Screen (Neg) U Marijuana THC Carboxy Drug Screen Comment Ethyl Alcohol mg/dL (<10.0) mg/dl Hepatitis A IgM Ab Hep Bs Antigen Hep Bs Ag Confirmation Hep B Core IgM Ab Hepatitis C Ab (EIA) Hep C Ab Signal/Cutoff SARS-CoV-2, RNA, NAAT (NEGATIVE) 10/11/22 10/11/22 10/11/22 Range/Units 20:45 20:15 20:15 WBC (4.8-10.8) K/ul RBC (4.70-6.10) M/uL Hgb (14.0-18.0) g/dl Hct (42.0-52.0) % MCV (80.0-100.0) fL MCH (25.0-34.0) pg MCHC (32.0-36.0) g/dL RDW Std Deviation (36.4-46.3) fL RDW Coeff of [place]el[place] (11.5-14.5) % Plt Count (130-400) K/uL MPV (9.4-12.4) fL Immature Gran % (Auto) % Neut % (Auto) % Lymph % (Auto) % [place] % (Auto) % Eos % (Auto) % Baso % (Auto) % Neut # (Auto) (1.40-6.50) K/uL Lymph # (Auto) (1.2-3.4) K/uL [place] # (Auto) (0.11-0.59) K/uL Eos # (Auto) (0-0.50) K/uL Baso # (Auto) (0-0.2) K/uL Immature Gran # (Auto) (0.01-0.20) K/uL ESR (0-20) mm/hr PT (9.0-12.0) Seconds INR (0.9-1.1) Sodium (136-145) mmol/L Potassium (3.5-5.1) mmol/L Chloride (98-107) mmol/L Carbon Dioxide (21-32) mmol/L Anion Gap (3-11) BUN (6-23) mg/dl Creatinine (0.6-1.4) mg/dl Est Cr Clr Drug Dosing Est GFR ( Amer) ml/min Est GFR (Non-Af Amer) ml/min BUN/Creatinine Ratio (10-20) Glucose (70-99(Fasting)) mg/dl POC Glucose (70-99) mg/dl Estimat Average Glucose mg/dl Hemoglobin A1c (4.5-5.6) % Calcium (8.6-10.3) mg/dl Magnesium (1.7-2.4) mg/dl Total Bilirubin (0.2-1.0) mg/dl AST (13-39) U/L ALT (7-52) U/L Alkaline Phosphatase (34-104) U/L Total Creatine Kinase 115 (30-223) U/L C-Reactive Protein (0-0.5) mg/dl Total Protein (6.0-8.3) gm/dl Albumin (3.4-5.0) gm/dl Globulin (2.5-4.0) gm/dl Albumin/Globulin Ratio (0.9-2) Triglycerides (0-150) mg/dl Cholesterol (0-200) mg/dl LDL Cholesterol, Calc mg/dl VLDL Cholesterol, Calc (0-30) mg/dl HDL Cholesterol mg/dl Cholesterol/HDL Ratio (0-5) Procalcitonin (0-0.5) ng/ml TSH (0.300-4.500) uIu/ml Urine Color Urine Appearance (Clear) Urine pH (4.5-7.5) Ur Specific [place] (1.000-1.030) Urine Protein (Negative) Urine Glucose (UA) (Negative) Urine Ketones (Negative) Urine Blood (Negative) Urine Nitrite (Negative) Urine Bilirubin (Negative) Urine Urobilinogen (Negative) Ur Leukocyte Esterase (Negative) Urine WBC (Auto) (0-5) /hpf Urine RBC (Auto) (0-4) /hpf U Hyaline Cast (Auto) (0-5) /lpf U Epithel Cells (Auto) (0-5) /lpf Urine Bacteria (Auto) (Negative) Ur Random Creatinine 107.2 mg/dl U Random Total Protein 760.4 H (0-11.9) mg/dl Protein/Creatinin Ratio 7.1 H (0-0.2) Nasal Screen MRSA (PCR) Positive A (Negative) Salicylates (3.0-30) mg/dl Urine Opiates Screen (Neg) Ur Methadone, Qual (Neg) Acetaminophen (10-30) ug/ml Urine Barbiturates (Neg) Ur Phencyclidine (PCP) (Neg) U Amphetamines Confirm U Amphetamin/Meth Scrn (Neg) U Methamphetamin Confrm Urine MDEA MDMA (Ecstasy) Screen (Neg) MDMA Urine MDMA U Benzodiazepines Scrn (Neg) Ur Cocaine Metabolite (Neg) U Marijuana (THC) Screen (Neg) U Marijuana THC Carboxy Drug Screen Comment Ethyl Alcohol mg/dL (<10.0) mg/dl Hepatitis A IgM Ab Hep Bs Antigen Hep Bs Ag Confirmation Hep B Core IgM Ab Hepatitis C Ab (EIA) Hep C Ab Signal/Cutoff SARS-CoV-2, RNA, NAAT (NEGATIVE) 10/11/22 10/11/22 10/11/22 Range/Units 19:56 17:12 17:12 WBC (4.8-10.8) K/ul RBC (4.70-6.10) M/uL Hgb (14.0-18.0) g/dl Hct (42.0-52.0) % MCV (80.0-100.0) fL MCH (25.0-34.0) pg MCHC (32.0-36.0) g/dL RDW Std Deviation (36.4-46.3) fL RDW Coeff of [place]el[place] (11.5-14.5) % Plt Count (130-400) K/uL MPV (9.4-12.4) fL Immature Gran % (Auto) % Neut % (Auto) % Lymph % (Auto) % [place] % (Auto) % Eos % (Auto) % Baso % (Auto) % Neut # (Auto) (1.40-6.50) K/uL Lymph # (Auto) (1.2-3.4) K/uL [place] # (Auto) (0.11-0.59) K/uL Eos # (Auto) (0-0.50) K/uL Baso # (Auto) (0-0.2) K/uL Immature Gran # (Auto) (0.01-0.20) K/uL ESR 40 H (0-20) mm/hr PT (9.0-12.0) Seconds INR (0.9-1.1) Sodium (136-145) mmol/L Potassium (3.5-5.1) mmol/L Chloride (98-107) mmol/L Carbon Dioxide (21-32) mmol/L Anion Gap (3-11) BUN (6-23) mg/dl Creatinine (0.6-1.4) mg/dl Est Cr Clr Drug Dosing Est GFR ( Amer) ml/min Est GFR (Non-Af Amer) ml/min BUN/Creatinine Ratio (10-20) Glucose (70-99(Fasting)) mg/dl POC Glucose 237 H (70-99) mg/dl Estimat Average Glucose mg/dl Hemoglobin A1c (4.5-5.6) % Calcium (8.6-10.3) mg/dl Magnesium (1.7-2.4) mg/dl Total Bilirubin (0.2-1.0) mg/dl AST (13-39) U/L ALT (7-52) U/L Alkaline Phosphatase (34-104) U/L Total Creatine Kinase (30-223) U/L C-Reactive Protein (0-0.5) mg/dl Total Protein (6.0-8.3) gm/dl Albumin (3.4-5.0) gm/dl Globulin (2.5-4.0) gm/dl Albumin/Globulin Ratio (0.9-2) Triglycerides (0-150) mg/dl Cholesterol (0-200) mg/dl LDL Cholesterol, Calc mg/dl VLDL Cholesterol, Calc (0-30) mg/dl HDL Cholesterol mg/dl Cholesterol/HDL Ratio (0-5) Procalcitonin 0.09 (0-0.5) ng/ml TSH (0.300-4.500) uIu/ml Urine Color Urine Appearance (Clear) Urine pH (4.5-7.5) Ur Specific [place] (1.000-1.030) Urine Protein (Negative) Urine Glucose (UA) (Negative) Urine Ketones (Negative) Urine Blood (Negative) Urine Nitrite (Negative) Urine Bilirubin (Negative) Urine Urobilinogen (Negative) Ur Leukocyte Esterase (Negative) Urine WBC (Auto) (0-5) /hpf Urine RBC (Auto) (0-4) /hpf U Hyaline Cast (Auto) (0-5) /lpf U Epithel Cells (Auto) (0-5) /lpf Urine Bacteria (Auto) (Negative) Ur Random Creatinine mg/dl U Random Total Protein (0-11.9) mg/dl Protein/Creatinin Ratio (0-0.2) Nasal Screen MRSA (PCR) (Negative) Salicylates (3.0-30) mg/dl Urine Opiates Screen (Neg) Ur Methadone, Qual (Neg) Acetaminophen (10-30) ug/ml Urine Barbiturates (Neg) Ur Phencyclidine (PCP) (Neg) U Amphetamines Confirm U Amphetamin/Meth Scrn (Neg) U Methamphetamin Confrm Urine MDEA MDMA (Ecstasy) Screen (Neg) MDMA Urine MDMA U Benzodiazepines Scrn (Neg) Ur Cocaine Metabolite (Neg) U Marijuana (THC) Screen (Neg) U Marijuana THC Carboxy Drug Screen Comment Ethyl Alcohol mg/dL (<10.0) mg/dl Hepatitis A IgM Ab Hep Bs Antigen Hep Bs Ag Confirmation Hep B Core IgM Ab Hepatitis C Ab (EIA) Hep C Ab Signal/Cutoff SARS-CoV-2, RNA, NAAT (NEGATIVE) 10/11/22 10/11/22 10/11/22 Range/Units 17:12 17:12 17:12 WBC (4.8-10.8) K/ul RBC (4.70-6.10) M/uL Hgb (14.0-18.0) g/dl Hct (42.0-52.0) % MCV (80.0-100.0) fL MCH (25.0-34.0) pg MCHC (32.0-36.0) g/dL RDW Std Deviation (36.4-46.3) fL RDW Coeff of [place] (11.5-14.5) % Plt Count (130-400) K/uL MPV (9.4-12.4) fL Immature Gran % (Auto) % Neut % (Auto) % Lymph % (Auto) % [place] % (Auto) % Eos % (Auto) % Baso % (Auto) % Neut # (Auto) (1.40-6.50) K/uL Lymph # (Auto) (1.2-3.4) K/uL [place] # (Auto) (0.11-0.59) K/uL Eos # (Auto) (0-0.50) K/uL Baso # (Auto) (0-0.2) K/uL Immature Gran # (Auto) (0.01-0.20) K/uL ESR (0-20) mm/hr PT (9.0-12.0) Seconds INR (0.9-1.1) Sodium (136-145) mmol/L Potassium (3.5-5.1) mmol/L Chloride (98-107) mmol/L Carbon Dioxide (21-32) mmol/L Anion Gap (3-11) BUN (6-23) mg/dl Creatinine (0.6-1.4) mg/dl Est Cr Clr Drug Dosing Est GFR ( Amer) ml/min Est GFR (Non-Af Amer) ml/min BUN/Creatinine Ratio (10-20) Glucose (70-99(Fasting)) mg/dl POC Glucose (70-99) mg/dl Estimat Average Glucose mg/dl Hemoglobin A1c (4.5-5.6) % Calcium (8.6-10.3) mg/dl Magnesium (1.7-2.4) mg/dl Total Bilirubin (0.2-1.0) mg/dl AST (13-39) U/L ALT (7-52) U/L Alkaline Phosphatase (34-104) U/L Total Creatine Kinase (30-223) U/L C-Reactive Protein (0-0.5) mg/dl Total Protein (6.0-8.3) gm/dl Albumin (3.4-5.0) gm/dl Globulin (2.5-4.0) gm/dl Albumin/Globulin Ratio (0.9-2) Triglycerides (0-150) mg/dl Cholesterol (0-200) mg/dl LDL Cholesterol, Calc mg/dl VLDL Cholesterol, Calc (0-30) mg/dl HDL Cholesterol mg/dl Cholesterol/HDL Ratio (0-5) Procalcitonin (0-0.5) ng/ml TSH 2.626 (0.300-4.500) uIu/ml Urine Color Urine Appearance (Clear) Urine pH (4.5-7.5) Ur Specific [place] (1.000-1.030) Urine Protein (Negative) Urine Glucose (UA) (Negative) Urine Ketones (Negative) Urine Blood (Negative) Urine Nitrite (Negative) Urine Bilirubin (Negative) Urine Urobilinogen (Negative) Ur Leukocyte Esterase (Negative) Urine WBC (Auto) (0-5) /hpf Urine RBC (Auto) (0-4) /hpf U Hyaline Cast (Auto) (0-5) /lpf U Epithel Cells (Auto) (0-5) /lpf Urine Bacteria (Auto) (Negative) Ur Random Creatinine mg/dl U Random Total Protein (0-11.9) mg/dl Protein/Creatinin Ratio (0-0.2) Nasal Screen MRSA (PCR) (Negative) Salicylates < 3.0 L (3.0-30) mg/dl Urine Opiates Screen (Neg) Ur Methadone, Qual (Neg) Acetaminophen < 3 L (10-30) ug/ml Urine Barbiturates (Neg) Ur Phencyclidine (PCP) (Neg) U Amphetamines Confirm U Amphetamin/Meth Scrn (Neg) U Methamphetamin Confrm Urine MDEA MDMA (Ecstasy) Screen (Neg) MDMA Urine MDMA U Benzodiazepines Scrn (Neg) Ur Cocaine Metabolite (Neg) U Marijuana (THC) Screen (Neg) U Marijuana THC Carboxy Drug Screen Comment Ethyl Alcohol mg/dL < 10.0 (<10.0) mg/dl Hepatitis A IgM Ab Hep Bs Antigen Hep Bs Ag Confirmation Hep B Core IgM Ab Hepatitis C Ab (EIA) Hep C Ab Signal/Cutoff SARS-CoV-2, RNA, NAAT (NEGATIVE) 10/11/22 10/11/22 10/11/22 Range/Units 17:12 17:12 17:05 WBC 9.36 (4.8-10.8) K/ul RBC 5.90 (4.70-6.10) M/uL Hgb 16.5 (14.0-18.0) g/dl Hct 46.5 (42.0-52.0) % MCV 78.8 L (80.0-100.0) fL MCH 28.0 (25.0-34.0) pg MCHC 35.5 (32.0-36.0) g/dL RDW Std Deviation 39.5 (36.4-46.3) fL RDW Coeff of [place]el[place] 13.7 (11.5-14.5) % Plt Count 247 (130-400) K/uL MPV 10.2 (9.4-12.4) fL Immature Gran % (Auto) 0.4 % Neut % (Auto) 64.2 % Lymph % (Auto) 23.9 % [place] % (Auto) 8.1 % Eos % (Auto) 2.7 % Baso % (Auto) 0.7 % Neut # (Auto) 6.00 (1.40-6.50) K/uL Lymph # (Auto) 2.24 (1.2-3.4) K/uL [place] # (Auto) 0.76 H (0.11-0.59) K/uL Eos # (Auto) 0.25 (0-0.50) K/uL Baso # (Auto) 0.07 (0-0.2) K/uL Immature Gran # (Auto) 0.04 (0.01-0.20) K/uL ESR (0-20) mm/hr PT (9.0-12.0) Seconds INR (0.9-1.1) Sodium 136 (136-145) mmol/L Potassium 4.3 (3.5-5.1) mmol/L Chloride 102 (98-107) mmol/L Carbon Dioxide 29 (21-32) mmol/L Anion Gap 5 (3-11) BUN 27 H (6-23) mg/dl Creatinine 1.27 (0.6-1.4) mg/dl Est Cr Clr Drug Dosing Not Reportable Est GFR ( Amer) 71.7 ml/min Est GFR (Non-Af Amer) 61.9 ml/min BUN/Creatinine Ratio 21.3 H (10-20) Glucose 314 H* (70-99(Fasting)) mg/dl POC Glucose (70-99) mg/dl Estimat Average Glucose mg/dl Hemoglobin A1c (4.5-5.6) % Calcium 9.7 (8.6-10.3) mg/dl Magnesium (1.7-2.4) mg/dl Total Bilirubin 1.0 (0.2-1.0) mg/dl AST 25 (13-39) U/L ALT 40 (7-52) U/L Alkaline Phosphatase 105 H (34-104) U/L Total Creatine Kinase (30-223) U/L C-Reactive Protein < 0.50 (0-0.5) mg/dl Total Protein 7.1 (6.0-8.3) gm/dl Albumin 3.3 L (3.4-5.0) gm/dl Globulin 3.8 (2.5-4.0) gm/dl Albumin/Globulin Ratio 0.9 (0.9-2) Triglycerides (0-150) mg/dl Cholesterol (0-200) mg/dl LDL Cholesterol, Calc mg/dl VLDL Cholesterol, Calc (0-30) mg/dl HDL Cholesterol mg/dl Cholesterol/HDL Ratio (0-5) Procalcitonin (0-0.5) ng/ml TSH (0.300-4.500) uIu/ml Urine Color Urine Appearance (Clear) Urine pH (4.5-7.5) Ur Specific [place] (1.000-1.030) Urine Protein (Negative) Urine Glucose (UA) (Negative) Urine Ketones (Negative) Urine Blood (Negative) Urine Nitrite (Negative) Urine Bilirubin (Negative) Urine Urobilinogen (Negative) Ur Leukocyte Esterase (Negative) Urine WBC (Auto) (0-5) /hpf Urine RBC (Auto) (0-4) /hpf U Hyaline Cast (Auto) (0-5) /lpf U Epithel Cells (Auto) (0-5) /lpf Urine Bacteria (Auto) (Negative) Ur Random Creatinine mg/dl U Random Total Protein (0-11.9) mg/dl Protein/Creatinin Ratio (0-0.2) Nasal Screen MRSA (PCR) (Negative) Salicylates (3.0-30) mg/dl Urine Opiates Screen (Neg) Ur Methadone, Qual (Neg) Acetaminophen (10-30) ug/ml Urine Barbiturates (Neg) Ur Phencyclidine (PCP) (Neg) U Amphetamines Confirm Pending U Amphetamin/Meth Scrn (Neg) U Methamphetamin Confrm Pending Urine MDEA Pending MDMA (Ecstasy) Screen (Neg) MDMA Pending Urine MDMA Pending U Benzodiazepines Scrn (Neg) Ur Cocaine Metabolite (Neg) U Marijuana (THC) Screen (Neg) U Marijuana THC Carboxy Pending Drug Screen Comment Pending Ethyl Alcohol mg/dL (<10.0) mg/dl Hepatitis A IgM Ab Hep Bs Antigen Hep Bs Ag Confirmation Hep B Core IgM Ab Hepatitis C Ab (EIA) Hep C Ab Signal/Cutoff SARS-CoV-2, RNA, NAAT (NEGATIVE) 10/11/22 10/11/22 10/11/22 Range/Units 17:05 17:05 17:05 WBC (4.8-10.8) K/ul RBC (4.70-6.10) M/uL Hgb (14.0-18.0) g/dl Hct (42.0-52.0) % MCV (80.0-100.0) fL MCH (25.0-34.0) pg MCHC (32.0-36.0) g/dL RDW Std Deviation (36.4-46.3) fL RDW Coeff of Candelario (11.5-14.5) % Plt Count (130-400) K/uL MPV (9.4-12.4) fL Immature Gran % (Auto) % Neut % (Auto) % Lymph % (Auto) % [place] % (Auto) % Eos % (Auto) % Baso % (Auto) % Neut # (Auto) (1.40-6.50) K/uL Lymph # (Auto) (1.2-3.4) K/uL [place] # (Auto) (0.11-0.59) K/uL Eos # (Auto) (0-0.50) K/uL Baso # (Auto) (0-0.2) K/uL Immature Gran # (Auto) (0.01-0.20) K/uL ESR (0-20) mm/hr PT (9.0-12.0) Seconds INR (0.9-1.1) Sodium (136-145) mmol/L Potassium (3.5-5.1) mmol/L Chloride (98-107) mmol/L Carbon Dioxide (21-32) mmol/L Anion Gap (3-11) BUN (6-23) mg/dl Creatinine (0.6-1.4) mg/dl Est Cr Clr Drug Dosing Est GFR ( Amer) ml/min Est GFR (Non-Af Amer) ml/min BUN/Creatinine Ratio (10-20) Glucose (70-99(Fasting)) mg/dl POC Glucose (70-99) mg/dl Estimat Average Glucose mg/dl Hemoglobin A1c (4.5-5.6) % Calcium (8.6-10.3) mg/dl Magnesium (1.7-2.4) mg/dl Total Bilirubin (0.2-1.0) mg/dl AST (13-39) U/L ALT (7-52) U/L Alkaline Phosphatase (34-104) U/L Total Creatine Kinase (30-223) U/L C-Reactive Protein (0-0.5) mg/dl Total Protein (6.0-8.3) gm/dl Albumin (3.4-5.0) gm/dl Globulin (2.5-4.0) gm/dl Albumin/Globulin Ratio (0.9-2) Triglycerides (0-150) mg/dl Cholesterol (0-200) mg/dl LDL Cholesterol, Calc mg/dl VLDL Cholesterol, Calc (0-30) mg/dl HDL Cholesterol mg/dl Cholesterol/HDL Ratio (0-5) Procalcitonin (0-0.5) ng/ml TSH (0.300-4.500) uIu/ml Urine Color Yellow Urine Appearance Clear (Clear) Urine pH 5.5 (4.5-7.5) Ur Specific [place] 1.037 H (1.000-1.030) Urine Protein 4+ H (Negative) Urine Glucose (UA) 3+ H (Negative) Urine Ketones Trace H (Negative) Urine Blood 1+ H (Negative) Urine Nitrite Negative (Negative) Urine Bilirubin Negative (Negative) Urine Urobilinogen Negative (Negative) Ur Leukocyte Esterase Negative (Negative) Urine WBC (Auto) 1-5 (0-5) /hpf Urine RBC (Auto) 5-10 H (0-4) /hpf U Hyaline Cast (Auto) 1-5 (0-5) /lpf U Epithel Cells (Auto) 10-20 H (0-5) /lpf Urine Bacteria (Auto) Negative (Negative) Ur Random Creatinine mg/dl U Random Total Protein (0-11.9) mg/dl Protein/Creatinin Ratio (0-0.2) Nasal Screen MRSA (PCR) (Negative) Salicylates (3.0-30) mg/dl Urine Opiates Screen Neg (Neg) Ur Methadone, Qual Neg (Neg) Acetaminophen (10-30) ug/ml Urine Barbiturates Neg (Neg) Ur Phencyclidine (PCP) Neg (Neg) U Amphetamines Confirm U Amphetamin/Meth Scrn Pos H (Neg) U Methamphetamin Confrm Urine MDEA MDMA (Ecstasy) Screen Pos H (Neg) MDMA Urine MDMA U Benzodiazepines Scrn Neg (Neg) Ur Cocaine Metabolite Neg (Neg) U Marijuana (THC) Screen Pos H (Neg) U Marijuana THC Carboxy Drug Screen Comment Ethyl Alcohol mg/dL (<10.0) mg/dl Hepatitis A IgM Ab Hep Bs Antigen Hep Bs Ag Confirmation Hep B Core IgM Ab Hepatitis C Ab (EIA) Hep C Ab Signal/Cutoff SARS-CoV-2, RNA, NAAT NEGATIVE (NEGATIVE) Medications Administered Acetaminophen (Acetaminophen 325 Mg Tab) 650 mg PO Q6H PRN PRN Reason: pain(1,2,3,4),headache,fever Stop: 11/10/22 20:14 Last Admin: 10/11/22 22:47 Dose: 650 mg Documented By: AD Amlodipine Besylate (Amlodipine Besylate 5 Mg Tab) 5 mg PO DAILY [facility] Stop: 11/11/22 08:59 Last Admin: 10/12/22 08:13 Dose: 5 mg Documented By: MATHEW Enoxaparin Sodium (Enoxaparin Inj 40 Mg/0.4 Ml Syr) 40 mg SQ Q24H [facility] Stop: 11/10/22 20:59 Last Admin: 10/11/22 23:14 Dose: 40 mg Documented By: AD Folic Acid (Folic Acid 1 Mg Tab) [facility] Stop: 11/11/22 08:59 Last Admin: 10/12/22 08:13 Dose: 1 mg Documented By: MATHEW Gabapentin (Gabapentin 100 Mg Cap) 100 mg PO TID [facility] Stop: 11/10/22 20:59 Last Admin: 10/12/22 08:13 Dose: 100 mg Documented By: Admin: 10/11/22 22:47 Dose: 100 mg Documented By: AD Daptomycin 300 mg/ Syringe 6 mls @ 3 mls/min IV Q24H [facility]; Protocol Stop: 10/18/22 21:59 Last Admin: 10/11/22 22:47 Dose: 3 mls/min Documented By: AD Insulin Aspart (Insulin Aspart Per Unit Charge) 0 units SC ACHS [facility] Stop: 11/11/22 07:29 Last Admin: 10/12/22 08:19 Dose: 1 units Documented By: MATHEW Co-signed By: HA Thiamine HCl (Thiamine Hcl 100 Mg Tab) 100 mg PO QAM [facility] Stop: 11/11/22 08:59 Last Admin: 10/12/22 08:13 Dose: 100 mg Documented By: MATHEW Coding Level of Care Code 03951 [facility] Intl Hosp Care Lvl 1 Diagnoses Major depression F32.9 Polysubstance abuse F19.10
[2022-10-12 09:25] LABS: Estimated Average Glucose 217 mg/dl; Hemoglobin A1C 9.2 % (4.5-5.6)
--- NOTE | 2022-10-12 12:12 | Pharmacy Report ---
Pharmacy Glycemic Short Note 2 - Date of Service October 12, 2022 - Glycemic Short BSG Results (Last 24 hours): 10/11/22 10/11/22 10/11/22 17:12 19:56 21:46 Glucose 314 H* POC Glucose 237 H 235 H 10/12/22 10/12/22 10/12/22 03:50 07:47 07:51 Glucose 71 POC Glucose 97 75 10/12/22 11:18 Glucose POC Glucose 123 H OUTPATIENT ANTIDIABETIC REGIMEN: * Basaglar 50 units SQ daily * HbA1C = 9.2% (10/12/22) ASSESSMENT: * Mr Pereira is a 57 y/o M with a PMH of IDDM who presents for evaluation. * BSG on admission was 237 mg/dL at HS. He received Lantus 15 units + 4 units of Novolog. * BSG this AM was 75 mg/dL. Reduce HS Lantus to 10 units due to fasting below goal range. * Novolog weight-based stress of 2 for now. PLAN FOR INPATIENT GLYCEMIC CONTROL: * Basal insulin * Lantus 10 units SQ HS * Bolus insulin * NovoLog per scale ACHS or Q6hrs while NPO * Goal Range: Low 110 mg/dL - High 140 mg/dL * Correction Factor: 25 mg/dL/unit * Nutritional / Prandial insulin per carb ratio of 1 unit per 8 grams CHO consumed
--- NOTE | 2022-10-12 12:18 | Hospitalist Progress Note ---
Date of Service October 12, 2022 Assessment & Plan (1) Suicidal ideations: Plan: -Admit to med/tele -Currently stable -Was brought in by his son after they initially took him to the [facility] due to suicidal and homicidal ideations -Suicide precautions, one-to-one, and Psychiatry consult placed -For now will continue his home Lexapro -Patient has multiple poorly treated or uncontrolled medical conditions which need to be stabilized before he is cleared for inpatient Psych placement -SQ lovenox for DVT PPX -AM CBC, CMP, Mag, PT/INR, A1C, and lipid panel (2) Wound of lower extremity: Plan: -Patient has chronic wounds on the BL LE's but he appears to have cellulitis of the RLE with a noted pustules -MRSA is positive -Will continue on Daptomycin -Xrays of the BL tib/fib did not suggest osteomyelitis -Arterial Doppler of the BL LE's wnl -Wound nurse consult placed (3) Diabetic neuropathy: Plan: -Patient has a previous history and was previously on Gabapentin but his prescription ran out -Will start him back on 100 mg TID Gabapentin for now, titrate as able (4) Hepatitis C: Plan: -Patient reports testing positive for Hep-C approximately 7-8 years ago -Previously injected meth -States he was initially setup for treatment but then left town -LFT's WNL today -Liver US wnl, no evidence of cirrhosis (5) H/O insulin dependent diabetes mellitus: Plan: -Monitor BSG ACHS, goal is 110-140 -Patient reportedly takes 50 units of glargine qam -Blood glucose under better control -A1C 8, lipid panel shows elevated cholesterol, will hold off on statin due to interaction with daptomycin -Pharmacy glycemic consult placed (6) Alcohol abuse: Plan: -difficulty quantifying how often he really drinks and the amount each time -For now will start him on AWSS at risk protocol -Will give him a Banana bag on admission as he appears dehydrated -Will start daily PO thiamine and folic acid (7) History of substance abuse: Plan: -Patient reports current methamphetamine abuse, currently snorting -Urine tox positive for Methamphetamines, marijuana, and MDMA(Likely due to his Lexapro) -Continue to monitor on tele for now -Psychiatry and case manamgement consults placed (8) HTN (hypertension): Plan: -Stable -Continue amlodipine Plan hopefully will be medically cleared for inpatient psych tomorrow Admission and Anticipated Discharge Date Admission Date: October 11, 2022 Subjective patient seen and examined, denies any suicidal thoughts now Review of Systems Review of Systems: The patient is awake, alert and oriented 3, well developed and well nourished, normocephalic and atraumatic, lying in bed and in no acute distress. HEENT--PERRL, EOMI, mucous membranes and oropharynx mildly dry Neck--supple. No JVD. No bruits. Thyroid normal, trachea midline, no adenopathy. Heart--normal S1 and S2. No murmurs, rubs or gallops. Lungs--clear bilaterally, no respiratory distress, no accessory muscle use. Abdomen--normal bowel sounds and soft. Mild epigastric and left sided abdominal pain Extremities--no cyanosis or clubbing. No edema. Dermatologic--lower extremity wounds with pustules Neurologic--cranial nerves II through XII grossly intact. Rheumatologic--normal range of motion. Psychiatric--normal affect. Results & Data Results & Data Vital Signs (Past 12 Hours) Vital Signs Temp Pulse Pulse Resp BP Pulse Ox O2 Del Method 10/12/22 11:22 97.7 F 81 18 148/95 H 95 Room Air 10/12/22 07:48 97.5 F L 84 18 134/71 96 Room Air 10/12/22 07:18 66 10/12/22 02:41 97.7 F 77 15 161/86 H 96 Room Air PG Care Time/CCT Total # of Minutes Spent Total Time Spent with Patient: Total time spent is greater than 50% in coordination of care (as documented) at patient's floor/unit and/or counseling patient: Coding Level of Care Code 20025 SUB INP/OBS CARE 2/35MIN Diagnoses Suicidal ideations R45.851 Wound of lower extremity S81.809A Diabetic neuropathy E11.40 Hepatitis C B19.20 Hepatic coma status: without hepatic coma Viral hepatitis chronicity: unspecified H/O insulin dependent diabetes mellitus Z86.39 Alcohol abuse F10.10 History of substance abuse F19.11 HTN (hypertension) I10 Time Spent (min) 35 (4) Hepatitis C Hepatic coma status: without hepatic coma Viral hepatitis chronicity: unspecified Qualified Code(s): B19.20 - Unspecified viral hepatitis C without hepatic coma
[2022-10-12] MEDS: ACETAMINOPHEN 325 MG TAB PO PRN (12:31)
--- NOTE | 2022-10-12 13:20 | Electrocardiogram Report ---
Test Reason : Blood Pressure : / mmHG Vent. Rate : 094 BPM Atrial Rate : 094 BPM P-R Int : 152 ms QRS Dur : 082 ms QT Int : 372 ms P-R-T Axes : 053 053 092 degrees QTc Int : 465 ms Normal sinus rhythm Normal ECG No previous ECGs available Confirmed by Zaheer Christianson ([id number]) on 10/12/2022 1:19:51 PM Referred By: Ranjeet Murray Confirmed By:Zaheer Christianson
[2022-10-12] MEDS: ENOXAPARIN INJ 40 MG/0.4 ML SYR SQ SCH (20:25)
[2022-10-12] MEDS ORDERED: LANTUS PER UNIT CHARGE SC SCH (21:00)
[2022-10-12] MEDS: GABAPENTIN 150 MG/3 ML UDP PO SCH (21:29)
[2022-10-12] MEDS: DAPTOmycin 300 MG in SYRINGE 0 ML IV SCH (21:30)
[2022-10-12] MEDS ORDERED: MELATONIN 3 MG TAB PO PRN (23:33)
[2022-10-13] MEDS ORDERED: ONDANSETRON 4 MG OD TAB PO PRN (02:16)
[2022-10-13] MEDS: ACETAMINOPHEN 325 MG TAB PO PRN (02:22)
[2022-10-13] MEDS: INSULIN ASPART PER UNIT CHARGE SC SCH ×2 (08:07→12:05)
[2022-10-13] MEDS: FOLIC ACID 1 MG TAB PO SCH (08:09)
[2022-10-13] MEDS: THIAMINE HCL 100 MG TAB PO SCH (08:09)
[2022-10-13] MEDS: GABAPENTIN 150 MG/3 ML UDP PO SCH (08:09)
[2022-10-13] MEDS: amLODIPine BESYLATE 5 MG TAB PO SCH (08:09)
[2022-10-13 09:18] LABS: Basophils # (auto) 0.06 K/uL (0-0.2); Basophils % (auto) 0.8 %; Eosinophils # (auto) 0.19 K/uL (0-0.50); Eosinophils % (auto) 2.4 %; Hemoglobin 15.3 g/dl (14.0-18.0); Immature Granulocytes # (auto) 0.02 K/uL (0.01-0.20); Immature Granulocytes % (auto) 0.3 %; Lymphocytes # (auto) 1.94 K/uL (1.2-3.4); Lymphocytes % (auto) 24.3 %; Mean Corpuscular Hemoglobin 28.4 pg (25.0-34.0); Mean Corpuscular Hgb Conc 36.4 g/dL (32.0-36.0); Mean Corpuscular Volume 77.9 fL (80.0-100.0); Monocytes # (auto) 0.56 K/uL (0.11-0.59); Neutrophils # (auto) 5.23 K/uL (1.40-6.50); Neutrophils % (auto) 65.2 %; Platelet Count 225 K/uL (130-400); RDW Coefficient of Variation 13.7 % (11.5-14.5); RDW Standard Deviation 38.5 fL (36.4-46.3); Red Blood Count 5.39 M/uL (4.70-6.10)
[2022-10-13 09:39] LABS: Albumin Globulin Ratio 0.8 (0.9-2); Albumin Level 2.6 gm/dl (3.4-5.0); Bilirubin,Total 0.8 mg/dl (0.2-1.0); Calcium 9.1 mg/dl (8.6-10.3); Creatinine Clr Calc Pharmacy 89.3 ml/min; Est GFR (African American) 95.7 ml/min; Est GFR (Non-African American) 82.6 ml/min; Globulin 3.2 gm/dl (2.5-4.0); Magnesium 1.8 mg/dl (1.7-2.4); Potassium 3.9 mmol/L (3.5-5.1); Total Protein 5.8 gm/dl (6.0-8.3)
[2022-10-13 09:42] LABS: Prothrombin Time 10.5 Seconds (9.0-12.0)
--- NOTE | 2022-10-13 10:40 | Hospitalist Progress Note ---
Date of Service October 13, 2022 Assessment & Plan (1) Suicidal ideations: Plan: -Patient Was brought in by his son after they initially took him to the [facility] due to suicidal and homicidal ideations -Suicide precautions, and Psychiatry consult placed -For now will continue his home Lexapro -Sitter has been discontinued per Psych -He will benefit from inpatient psych -He is medically cleared and medically stable for inpatient psych (2) Wound of lower extremity: Plan: -Patient has chronic wounds on the BL LE's but he appears to have cellulitis of the RLE with a noted pustules -MRSA nares is positive -Will continue on Daptomycin, switch to oral Bactrim upon discharge -Xrays of the BL tib/fib did not suggest osteomyelitis -Arterial Doppler of the BL LE's wnl -Wound nurse consult placed (3) Diabetic neuropathy: Plan: -Patient has a previous history and was previously on Gabapentin but his prescription ran out -Will start him back on 100 mg TID Gabapentin for now, titrate as able (4) Hepatitis C: Plan: -Patient reports testing positive for Hep-C approximately 7-8 years ago -Previously injected meth -States he was initially setup for treatment but then left town -LFT's WNL today -Liver US wnl, no evidence of cirrhosis (5) H/O insulin dependent diabetes mellitus: Plan: -Monitor BSG ACHS, goal is 110-140 -Patient reportedly takes 50 units of glargine qam -Blood glucose under better control -A1C 8, lipid panel shows elevated cholesterol, will hold off on statin due to interaction with daptomycin -Pharmacy glycemic consult placed (6) Alcohol abuse: Plan: -difficulty quantifying how often he really drinks and the amount each time -For now will start him on AWSS at risk protocol -Will give him a Banana bag on admission as he appears dehydrated -Will start daily PO thiamine and folic acid (7) History of substance abuse: Plan: -Patient reports current methamphetamine abuse, currently snorting -Urine tox positive for Methamphetamines, marijuana, and MDMA(Likely due to his Lexapro) -Continue to monitor on tele for now -Psychiatry and case manamgement consults placed (8) HTN (hypertension): Plan: -Stable -Continue amlodipine Plan Patient is medically cleared and medically stable for inpatient psych Admission and Anticipated Discharge Date Admission Date: October 11, 2022 Subjective patient seen and examined, denies any suicidal thoughts now Review of Systems Review of Systems: All systems reviewed are negative, apart from the ones contained in the history. Physical Exam Physical Exam: The patient is awake, alert and oriented 3, well developed and well nourished, normocephalic and atraumatic, lying in bed and in no acute distress. HEENT--PERRL, EOMI, mucous membranes and oropharynx mildly dry Neck--supple. No JVD. No bruits. Thyroid normal, trachea midline, no adenopathy. Heart--normal S1 and S2. No murmurs, rubs or gallops. Lungs--clear bilaterally, no respiratory distress, no accessory muscle use. Abdomen--normal bowel sounds and soft. Mild epigastric and left sided abdominal pain Extremities--no cyanosis or clubbing. No edema. Dermatologic--normal skin turgor, normal color, no abnormal lymph nodes, no rash. Neurologic--cranial nerves II through XII grossly intact. Rheumatologic--normal range of motion. Psychiatric--normal affect. Results & Data Results & Data Vital Signs (Past 12 Hours) Vital Signs Temp Pulse Pulse Resp BP BP Pulse Ox 10/13/22 07:49 97.7 F 84 16 146/92 H 98 10/13/22 07:47 80 10/12/22 22:59 88 10/13/22 02:13 84 150/91 H 96 10/12/22 23:35 97.9 F 91 H 18 159/89 H 98 O2 Del Method 10/13/22 07:49 Room Air 10/13/22 07:47 10/12/22 22:59 10/13/22 02:13 Room Air 10/12/22 23:35 Room Air PG Care Time/CCT Total # of Minutes Spent Total Time Spent with Patient: Total time spent is greater than 50% in coordination of care (as documented) at patient's floor/unit and/or counseling patient: Coding Level of Care Code 92754 SUB INP/OBS CARE 2/35MIN Diagnoses Suicidal ideations R45.851 Wound of lower extremity S81.809A Diabetic neuropathy E11.40 Hepatitis C B19.20 Hepatic coma status: without hepatic coma Viral hepatitis chronicity: unspecified H/O insulin dependent diabetes mellitus Z86.39 Alcohol abuse F10.10 History of substance abuse F19.11 HTN (hypertension) I10 Time Spent (min) 35 (4) Hepatitis C Hepatic coma status: without hepatic coma Viral hepatitis chronicity: unspecified Qualified Code(s): B19.20 - Unspecified viral hepatitis C without hepatic coma
--- NOTE | 2022-10-13 11:00 | Psychiatric Progress Note ---
Date of Service October 13, 2022 Impression / Recommendations Impression 57 yo male with long hx of substance abuse, depressive symptoms, decline in caring for self complicating underlying medical. Denies active SI in hospital but would benefit from inpatient psychiatric admission when medically cleared. Patient likely minimizing his psychological and physiologic dependence on substances. (1) Major depression: (2) Polysubstance abuse: Plan inpatient psychiatric hospitalization when medically cleared, patient agreeable to 201. Risk Factors Assessment Do You Have Access To A Gun?: No (son secured) Protective Factors Assessment Employed: No Interval History Identifying Information 57 yo male initially presented to the [facility] for mental health assessment of depression. Due to poor compliance with multiple medical conditions was sent to ED and admit medically. Consult is by hospitalist service. Chief Complaint depression, poor self care Review of Systems Notes denied physical complaints other than stated above. Subjective Subjective Patient was seen & assessed and interval progress reviewed with nursing. Patient comfortable in bed this am. He did describe frustration with his ongoing neuropathy. Ongoing depression. Willing for inpatient treatment. Denies withdrawal sx. MRSA positive with contact precautions. Physical Exam Psychiatric Orientation: alert and oriented x 3 Eye Contact: + fair eye contact Motor Behavior: no abnormal motor movements Speech: normal rate/rhythm/volume of speech Affect: + depressed affect Mood: + depressed mood Thought Process: goal directed thought process Thought Content: reality based without delusions Suicidal Thoughts: denies suicidal thoughts Homicidal Thoughts: denies homicidal thoughts Hallucinations: no auditory hallucinations and no visual hallucinations Cognition: attention grossly intact and language grossly intact Estimated Intelligence: consistent with education level Insight: + limited insight Judgment: + limited judgement Vital Signs (Past 24 Hours) Last Vital Signs Temp 36.5 C 10/13/22 07:49 Pulse 84 10/13/22 07:49 Resp 16 10/13/22 07:49 BP 146/92 H 10/13/22 07:49 Pulse Ox 98 10/13/22 07:49 O2 Del Method Room Air 10/13/22 08:00 Results & Data ([facility]) Laboratory Results Laboratory Results - last 24 hr 10/12/22 10/12/22 10/12/22 11:18 16:34 20:13 WBC RBC Hgb Hct MCV MCH MCHC RDW Std Deviation RDW Coeff of Candelario Plt Count MPV Immature Gran % (Auto) Neut % (Auto) Lymph % (Auto) [place] % (Auto) Eos % (Auto) Baso % (Auto) Neut # (Auto) Lymph # (Auto) [place] # (Auto) Eos # (Auto) Baso # (Auto) Immature Gran # (Auto) PT INR Sodium Potassium Chloride Carbon Dioxide Anion Gap BUN Creatinine Est Cr Clr Drug Dosing Est GFR ( Amer) Est GFR (Non-Af Amer) BUN/Creatinine Ratio Glucose POC Glucose 123 H 185 H 114 H Calcium Magnesium Total Bilirubin AST ALT Alkaline Phosphatase Total Creatine Kinase Total Protein Albumin Globulin Albumin/Globulin Ratio 10/13/22 10/13/22 10/13/22 07:52 08:45 08:45 WBC 8.00 RBC 5.39 Hgb 15.3 Hct 42.0 MCV 77.9 L MCH 28.4 MCHC 36.4 H RDW Std Deviation 38.5 RDW Coeff of Candelario 13.7 Plt Count 225 MPV 10.0 Immature Gran % (Auto) 0.3 Neut % (Auto) 65.2 Lymph % (Auto) 24.3 [place] % (Auto) 7.0 Eos % (Auto) 2.4 Baso % (Auto) 0.8 Neut # (Auto) 5.23 Lymph # (Auto) 1.94 [place] # (Auto) 0.56 Eos # (Auto) 0.19 Baso # (Auto) 0.06 Immature Gran # (Auto) 0.02 PT 10.5 INR 1.0 Sodium Potassium Chloride Carbon Dioxide Anion Gap BUN Creatinine Est Cr Clr Drug Dosing Est GFR ( Amer) Est GFR (Non-Af Amer) BUN/Creatinine Ratio Glucose POC Glucose 84 Calcium Magnesium Total Bilirubin AST ALT Alkaline Phosphatase Total Creatine Kinase Total Protein Albumin Globulin Albumin/Globulin Ratio 10/13/22 08:45 WBC RBC Hgb Hct MCV MCH MCHC RDW Std Deviation RDW Coeff of Candelario Plt Count MPV Immature Gran % (Auto) Neut % (Auto) Lymph % (Auto) [place] % (Auto) Eos % (Auto) Baso % (Auto) Neut # (Auto) Lymph # (Auto) [place] # (Auto) Eos # (Auto) Baso # (Auto) Immature Gran # (Auto) PT INR Sodium 135 L Potassium 3.9 Chloride 105 Carbon Dioxide 26 Anion Gap 4 BUN 20 Creatinine 1.00 Est Cr Clr Drug Dosing 89.3 Est GFR ( Amer) 95.7 Est GFR (Non-Af Amer) 82.6 BUN/Creatinine Ratio 20.0 Glucose 175 H POC Glucose Calcium 9.1 Magnesium 1.8 Total Bilirubin 0.8 AST 31 ALT 37 Alkaline Phosphatase 78 Total Creatine Kinase 49 Total Protein 5.8 L Albumin 2.6 L Globulin 3.2 Albumin/Globulin Ratio 0.8 L Current Inpatient Medications Current Inpatient Medications: Current Inpatient Medications Acetaminophen (Acetaminophen 325 Mg Tab) 650 mg PO Q6H PRN PRN Reason: pain(1,2,3,4),headache,fever Stop: 11/10/22 20:14 Last Admin: 10/13/22 02:22 Dose: 650 mg Amlodipine Besylate (Amlodipine Besylate 5 Mg Tab) 5 mg PO DAILY [facility] Stop: 11/11/22 08:59 Last Admin: 10/13/22 08:09 Dose: 5 mg Dextrose (Dextrose 50% 50 Ml Syringe) 25 - 50 ml IV UD PRN; Protocol PRN Reason: Hypoglycemia Protocol Stop: 11/10/22 19:21 Enoxaparin Sodium (Enoxaparin Inj 40 Mg/0.4 Ml Syr) 40 mg SQ Q24H [facility] Stop: 11/10/22 20:59 Last Admin: 10/12/22 20:25 Dose: 40 mg Folic Acid (Folic Acid 1 Mg Tab) 1 mg PO QAM [facility] Stop: 11/11/22 08:59 Last Admin: 10/13/22 08:09 Dose: 1 mg Gabapentin (Gabapentin 150 Mg/3 Ml Udp) 150 mg PO TID [facility] Stop: 11/11/22 20:59 Last Admin: 10/13/22 08:09 Dose: 150 mg Glucagon (Glucagon For Inj 1 Mg Vial) 1 mg SQ UD PRN; Protocol PRN Reason: Hypoglycemia Protocol Stop: 11/10/22 19:21 Glucose (Glucose 10 Tab/Tube) 4 - 8 tab PO UD PRN; Protocol PRN Reason: Hypoglycemia Treatment Stop: 11/10/22 19:21 Glucose (Glucose 40% Gel 15 Gm Tube) 15 - 30 gm PO UD PRN; Protocol PRN Reason: Hypoglycemia Protocol Stop: 11/10/22 19:21 Daptomycin 300 mg/ Syringe 6 mls @ 3 mls/min IV Q24H [facility]; Protocol Stop: 10/18/22 21:59 Last Admin: 10/12/22 21:30 Dose: 3 mls/min Insulin Aspart (Insulin Aspart Per Unit Charge) 0 units SC ACHS [facility] Stop: 11/11/22 07:29 Last Admin: 10/13/22 08:07 Dose: Not Given Insulin Glargine (Lantus Per Unit Charge) 10 units SC HS [facility] Stop: 11/11/22 20:59 Last Admin: 10/12/22 20:24 Dose: 10 units Lorazepam (Lorazepam 1 Mg Tab) 1 mg PO ONE PRN; Protocol PRN Reason: EtoH Withdrawal AWSS 6,7,8,9,10 Melatonin (Melatonin 3 Mg Tab) 3 mg PO HS PRN PRN Reason: Sleep Stop: 11/11/22 23:32 Miscellaneous (Carbohydrates For Hypoglycemia ) 15 - 30 gm PO UD PRN PRN Reason: Hypoglycemia Protocol Stop: 11/10/22 19:21 Miscellaneous Information (Pharmacy Glycemic Mgmt Consult) 1 each N/A UD PRN PRN Reason: Consult Stop: 11/10/22 19:21 Ondansetron HCl (Ondansetron 4 Mg Od Tab) 4 mg PO Q6H PRN PRN Reason: Nausea Stop: 11/12/22 02:15 Last Admin: 10/13/22 02:24 Dose: 4 mg Thiamine HCl (Thiamine Hcl 100 Mg Tab) 100 mg PO QAM [facility] Stop: 11/11/22 08:59 Last Admin: 10/13/22 08:09 Dose: 100 mg Post Discharge Appointments Primary Care Physician Date of Future Appointment with PCP: monthly
--- NOTE | 2022-10-13 13:59 | Discharge Summary ---
Date of Service October 13, 2022 Admission HPI Per Admitting Provider Armando is a 57 year old male with a PMH significant for alcohol abuse, substance abuse, hepatitis C, previous incarceration, DM II, depression, HTN, who presented to the [facility] ED with family due to suicidal ideations. In the ED, vitals were stable. Labs were significant for MCV of 78, BUN of 27, glucose of 314, alk phose of 105, UA with 4+ protein, 3+ glucose, trace ketones, 1+ blood, RBC 5-10, and 10-20 epithelial cells, and Urine tox screen negative for salicylates, acetaminophen, alcohol, but positive for amphetamines, MDMA, and marijuana. We were asked to admit the patient to our service for medical clearance with is complex medical history. At the time of the exam the patient was lying in bed in no acute distress. He states that his son initially tried to bring him to the [facility] earlier today as he has been having suicidal and homicidal ideations. When asked to elaborate, he states that "my life is in a tailspin and I can make it stop". He states that his ex girlfriend and her new boyfriend are living in his old home and on his land. He states that he is also mad at his old employer for firing him. He planned to go into a local cave where he knows bears frequent in an attempt to get them to attack/kill him. He states that he has thoughts of harming his ex GF and her new boyfriend but no plans at this time. He confirms that he has a hx of anxiety/depress, previous tobacco abuse (quit 20 years ago), HTN, and substance abuse. He has recently been snorting methamphetamine and smoking marijuana daily. He states he drinks approximately 3-4 days a week. When asked about his alcohol of choice, he tells me he makes his own whiskey and that it's "200 proof". He was unable to adequately quantify how much he drinks in a day but states that his last drink was this am. His last drink was a beer on the way to the ED due to anxiety. He states he last used meth approximately 2 days ago. He has chronic LE pain/neuropathy and states that he frequently gets wounds on the lower legs. They start as boils and eventually pop/drain clear fluid. He denies recent fever, chills, chest pain, SOB, cough, nausea, vomiting, dysuria, hematuria, melena, and recent trauma. When asked, he states that he was told he was Hepatitis-C positive approximately 7-8 years ago. He was setup to start treatment but then "ran away with a woman". He states that he wants to get his life back on track and is interested in being seen by our psychiatric team. Principal Diagnosis severe depression, substance abuse Discharge Exam The patient is awake, alert and oriented 3, well developed and well nourished, normocephalic and atraumatic, lying in bed and in no acute distress. HEENT--PERRL, EOMI, mucous membranes and oropharynx mildly dry Neck--supple. No JVD. No bruits. Thyroid normal, trachea midline, no adenopathy. Heart--normal S1 and S2. No murmurs, rubs or gallops. Lungs--clear bilaterally, no respiratory distress, no accessory muscle use. Abdomen--normal bowel sounds and soft. Mild epigastric and left sided abdominal pain Extremities--no cyanosis or clubbing. No edema. Dermatologic--normal skin turgor, normal color, no abnormal lymph nodes, no rash. Neurologic--cranial nerves II through XII grossly intact. Rheumatologic--normal range of motion. Psychiatric--normal affect. Discharge Data Allergies Allergy/AdvReac Type Severity Reaction Status Date / Time No Known Allergies Allergy Verified 10/11/22 18:45 Consultations 10/11/22 19:26 ED Decision to Admit Stat 10/11/22 20:31 Consult Psychiatry Routine Ordered Studies 10/12/22 US arterial duplex LE Routine US liver Routine Diabetes Follow up Diabetes Follow-up Needed for HgbA1c >9% Hospital Course (1) Suicidal ideations: -Patient Was brought in by his son after they initially took him to the [facility] due to suicidal and homicidal ideations -Suicide precautions, and Psychiatry consult placed -For now will continue his home Lexapro -Sitter has been discontinued per Psych -He will benefit from inpatient psych -He is medically cleared and medically stable for inpatient psych (2) Wound of lower extremity: -Patient has chronic wounds on the BL LE's but he appears to have cellulitis of the RLE with a noted pustules -MRSA nares is positive -Will continue on Daptomycin, switch to oral Bactrim upon discharge -Xrays of the BL tib/fib did not suggest osteomyelitis -Arterial Doppler of the BL LE's wnl -Wound nurse consult placed (3) Diabetic neuropathy: -Patient has a previous history and was previously on Gabapentin but his prescription ran out -Will start him back on 100 mg TID Gabapentin for now, titrate as able (4) Hepatitis C: -Patient reports testing positive for Hep-C approximately 7-8 years ago -Previously injected meth -States he was initially setup for treatment but then left town -LFT's WNL today -Liver US wnl, no evidence of cirrhosis (5) H/O insulin dependent diabetes mellitus: -Monitor BSG ACHS, goal is 110-140 -Patient reportedly takes 50 units of glargine qam -Blood glucose under better control -A1C 8, lipid panel shows elevated cholesterol, will hold off on statin due to interaction with daptomycin -Pharmacy glycemic consult placed (6) Alcohol abuse: -difficulty quantifying how often he really drinks and the amount each time -For now will start him on AWSS at risk protocol -Will give him a Banana bag on admission as he appears dehydrated -Will start daily PO thiamine and folic acid (7) History of substance abuse: -Patient reports current methamphetamine abuse, currently snorting -Urine tox positive for Methamphetamines, marijuana, and MDMA(Likely due to his Lexapro) -Continue to monitor on tele for now -Psychiatry and case manamgement consults placed (8) HTN (hypertension): -Stable -Continue amlodipine Plan Patient is medically cleared and medically stable for inpatient psych Total Time Total Time Spent Total Time Spent (In Minutes): 35 Discharge Plan Discharge Items Patient Disposition: Home - Self-Care Reason For Visit: MENTAL HEALTH Discharge Diagnosis: polysubstance abuse Activity: Resume your previous activity Non-emergency contact: Primary Care Provider and Psychiatrist Call non-emergency contact if: you have any medication questions Follow-up/Referrals: Radha Monahan PA-C [Primary Care Provider] - Diet: Regular Addtl Attending Provider Instructions: please make appointment to follow up with psychiatry Pending Studies at Discharge: No Stand-Alone Forms: [employer], Smoking Cessation Medications and DC Order Prescriptions: Continued hydroxyzine HCl 50 mg Tablet 50 mg PO HS Rx Instructions: Patient states does not like this, unknown last dose amlodipine 5 mg Tablet 5 mg PO DAILY polyethylene glycol 3350 [Miralax] 17 gram/dose Powder 17 g PO DAILY PRN (Reason: Constipation) escitalopram oxalate 10 mg Tablet 10 mg PO DAILY Rx Instructions: Patient states he does not like how it makes him feel, does not take, unknown last dose insulin glargine [Basaglar KwikPen U-100 Insulin] 100 unit/mL (3 mL) Insulin Pen 50 unit SUBCUT QAM Discontinued caffeine 200 mg Tablet 200 mg PO USEASDIRECTD PRN (Reason: energy) Discharge Orders: Discharge Order (Routine); Ordered 10/13/22 Ordered By: Shelly Mann/Other Patient Handouts: Managing Type 2 Diabetes, How to Check Your Blood Sugar Admission Data Admit Date/Time: 10/11/22 19:21 Attending Provider: Shelly Boucher Admit Provider: Terri Mckeon Primary Care Provider: Radha Monahan Other Providers: Terri Mckeon ; Samantha Luna ; Sabrina Glass ; Oliver Ochoa Other Interventions: Discharge Summary Assessment (RN) Last Done: 10/13/22 12:55 Coding Level of Care Code 03350 INP/OBS DISCH >30 MIN Diagnoses Suicidal ideations R45.851 Wound of lower extremity S81.809A Diabetic neuropathy E11.40 Hepatitis C B19.20 Hepatic coma status: without hepatic coma Viral hepatitis chronicity: unspecified H/O insulin dependent diabetes mellitus Z86.39 Alcohol abuse F10.10 History of substance abuse F19.11 HTN (hypertension) I10 Time Spent (min) 35
[2022-10-13] MEDS ORDERED: LANTUS PER UNIT CHARGE SC SCH (21:00)
[2022-10-14 11:57] LABS: HBSAG NON-REACTIVE (NON-REACTIVE); Hepatitis A Antibody IgM NON-REACTIVE (NON-REACTIVE); Hepatitis B Core Antibody IgM NON-REACTIVE (NON-REACTIVE)
[2022-10-14 13:17] LABS: Hepatitis C Vira RNA (Log) PCR 6.72 Log IU/mL (NOT DETECTED); Hepatitis C Viral RNA by PCR 5290000 IU/mL (NOT DETECTED)
[2022-10-15 16:57] LABS: Amphetamine Urine, Confirm 1294 ng/mL (<250); MDA negative; MDEA negative; MDMA (Ecstasy) Urine, Confirm negative; Marijuana Quant, GCMS Urine 849 ng/mL (<5); Methamphetamine, Ur Confirm 14905 ng/mL (<250)
== END 2022-10-13 13:57 | disposition home or self-care (01) ==
LOC: ED 16:46 → 2W 16:46 → SUATTDRO 19:21 → 2W 21:02

== ENCOUNTER 2022-10-13 13:27 | Inpatient (IN) ==
[2022-10-13] MEDS ORDERED: hydrOXYzine HCl 25 MG TAB PO PRN ×2 (13:57)
[2022-10-13] MEDS ORDERED: SODIUM CHLORIDE 0.65% NA SOLN 45 ML (OCEAN) PRN (13:57)
[2022-10-13] MEDS ORDERED: BISMUTH SUBSALICYLATE LIQD 236 ML PO PRN (13:57)
[2022-10-13] MEDS ORDERED: ALUMINUM/MAGNESIUM SUSP 30 ML UDC PO PRN (13:57)
[2022-10-13] MEDS ORDERED: MAGNESIUM HYDROXIDE SUSP 30 ML UDC PO PRN (13:57)
[2022-10-13] MEDS ORDERED: PHARMACY GLYCEMIC MGMT CONSULT PRN (14:00)
--- NOTE | 2022-10-13 14:10 | Pharmacy Report ---
Pharmacy Glycemic Short Note 2 - Date of Service October 13, 2022 - Glycemic Short OUTPATIENT ANTIDIABETIC REGIMEN: * basaglar 50 units daily ASSESSMENT: * Patient transferred to MHU unit. Pharmacy following for glycemic management starting 10/11. Patient received total of 29 units of insulin yesterday, of which 10 units were basal insulin. Had decreased basal insulin yesterday due to fasting BSG of 74 mg/dL * Fasting BSG 84 mg/dL despite previous basal decrease, will decrease further to 8 units at HS to hopefully avoid any AM hypoglycemia * Continue novolog CF/CR for now PLAN FOR INPATIENT GLYCEMIC CONTROL: * Hold outpatient oral diabetes medications * Basal insulin * Lantus 8 units daily HS * Bolus insulin * NovoLog per scale ACHS or Q6hrs while NPO * Goal Range: Low 110 mg/dL - High 140 mg/dL * Correction Factor: 25 mg/dL/unit * Nutritional / Prandial insulin per carb ratio of 1 unit per 8 grams CHO consumed
[2022-10-13] MEDS ORDERED: GLUCAGON FOR INJ 1 MG VIAL IM PRN (14:15)
[2022-10-13] MEDS ORDERED: GLUCOSE 40% GEL 15 GM TUBE PO PRN (14:15)
[2022-10-13] MEDS ORDERED: DEXTROSE 50% 50 ML SYRINGE IV PRN (14:15)
[2022-10-13] MEDS ORDERED: CARBOHYDRATES FOR HYPOGLYCEMIA PO PRN (14:15)
[2022-10-13] MEDS ORDERED: GLUCOSE 10 TAB/TUBE PO PRN (14:15)
[2022-10-13] MEDS ORDERED: POLYETHYLENE (MIRALAX) 17 GM PACK PO PRN (14:50)
[2022-10-13] MEDS ORDERED: DULoxetine HCL 20 MG CAP PO ONE (14:50)
--- NOTE | 2022-10-13 15:03 | History & Physical ---
Date of Service October 13, 2022 Impression / Recommendations Impression 57 yo male with long hx of substance abuse, depressive symptoms, decline in caring for self complicating underlying medical. Denies active SI in hospital but minimizing his self medication and lack of self care. (1) Major depression: (2) Polysubstance abuse: (3) Wound of lower extremity: (4) Diabetic neuropathy: (5) Hepatitis C: Hepatic coma status: without hepatic coma Viral hepatitis chronicity: unspecified Qualified Code(s): B19.20 - Unspecified viral hepatitis C without hepatic coma (6) H/O insulin dependent diabetes mellitus: Plan The patient was admitted to the [facility] ([facility]) on q15 min checks (behavioral with suicide precautions) for safety. The patient will participate in group, recreational, and milieu therapies and will be offered additional individual and family sessions as clinically appropriate. Glycemic pharmacy consult. Wound nurse consult with hospitalist support prn. Risks/benefits/alternatives reviewed re: trial of Cymbalta. Agreed to start 20 mg today with plan for titration. Inventory Assets Strengths: cooperative with care on medical floor, expressive Needs: community resources, improved coping Suicide Risk Level Suicide Risk Level: Moderate (q15 min suicide checks) Risk Factors Assessment Male: Yes : Yes Do You Have Access To A Gun?: No (son secured) Health Problems: Yes Mental Health Diagnoses: Yes Substance Use Disorders: Yes Previous Attempt: No Previous Psychiatric Hospitalization: No Protective Factors Assessment Supportive Family: Yes Psychiatric History Identifying Data CHELSY KC is a 57-year-old M who currently lives in [place], has a history of polysubstance abuse, and was admitted on 10/13/22 13:58 on a 201 voluntary commitment for depression and poor self care. Chief Complaint "I don't like pills, don't go to doctors, and drink some when it gets to loud around the little apartment." History of Present Illness As per consult on medical floor 10/12/2022: Patient with a 20+ year history of drug abuse, initially heroin following use of prescribed opiates, later alcohol and meth. He expressed guilt to ED for CM for essentially abandoning son due to drug use/moves and now inability to contribute given physical limitations such as neuropathy. He has been using meth q 2-3 weeks for the past year and makes his own high proof alcohol which he consumes in unknown amount. He also uses MJ daily. He reported self-medicating his depression with symptoms such as hopelessness and vegatative symptoms. He is noncompliant with his medications due to forgetfulness per report of son. Patient remains focussed on past occupational exposures as cause of his ulcerations/neuropathy rather than vascular causes or substances. He has reported thoughts to kill self in fall by instigating a hibernating bear. Denies active intent/plan to harm self but doesn't care if he doesn't wake up. Today the patient reports he remains depressed, doesn't feel like "doing much" yet at times will have restless thoughts. 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 He prefers to stay in his truck rather than truly live in his son's apartment as "cramped" with four kids and he is just getting to know his daughter in law. He lacks motivation to cook for self and is a lifelong "loner." Past Psychiatric History Outpatient Services: none Previous Psych Admissions: none but several rehab stays Do You Have Access To A Gun?: No (son secured) History of Previous Suicide Attempt: No Past Medication Trials: Lexapro (non specific doesn't like how feels on it), initially denied others but then recognized Wellbutrin when offered trial. Past Head Trauma/Neuro History History of Concussion/Seizure: No Allergies Allergy/AdvReac Type Severity Reaction Status Date / Time No Known Allergies Allergy Verified 10/11/22 18:45 Home Medications Medication Instructions Recorded Confirmed Type amlodipine 5 mg tablet 5 mg PO DAILY 10/11/22 10/11/22 History escitalopram oxalate 10 mg tablet 10 mg PO DAILY 10/11/22 10/11/22 History hydroxyzine HCl 50 mg tablet 50 mg PO HS 10/11/22 10/11/22 History insulin glargine 100 unit/mL (3 50 unit subcut QAM 10/11/22 10/11/22 History mL) subcutaneous pen (Basaglar KwikPen U-100 Insulin) polyethylene glycol 3350 17 17 g PO DAILY PRN Constipation 10/11/22 10/11/22 History gram/dose oral powder (Miralax) Family History Family History of: None Alcohol History Hx of Alcohol Use Over the Past 12 Months: Yes reports drinking a few shots 1-2 times a week but historically minimizes Smoking Use Smoking Status: Former smoker Substance History daily MJ, meth as above Personal History Living Arrangements: Apartment (with son and son's family) Childhood: 1 on 6 kids, 1 sister has passed Highest Grade Completed: Did Not Graduate High School (left school in 6th grade) Employment Status: Unemployed (hx of construction) Marital Status: Beliefs That Will Affect Care: None Current Legal Problems: No Hx Traumatic Life Events: No Patient History Medical History H/O insulin dependent diabetes mellitus Hepatitis C History of substance abuse Surgical History S/P appendectomy Social History Smoking Status: Former smoker Hx Alcohol Use: Yes Alcohol type: beer and hard liquor Hx Substance Use: Yes Last Used Substance: Days (ago) Last Used Substance Other:: smokes marijuana daily and snorts methamphetamine frequently Substance Use Type Other:: heroin use in past Preferred Language: Kinyarwanda Communication Ability: Effective Glue Plant Operator Required: No Beliefs That Will Affect Care: None Current Living Situation: Family Current Living Situation Comment: lives with son and family Feels Safe at Home: Yes Gender Identity: Male Assistive Devices: None Review of Systems Review of Systems: All systems reviewed & are unremarkable except as noted in HPI & below Physical Exam Psychiatric: Orientation: alert and oriented x 3 Apperance: appropriately dressed and appropriately groomed Eye Contact: good eye contact Motor Behavior: no abnormal motor movements Speech: normal rate/rhythm/volume of speech Affect: + depressed affect Mood: + depressed mood Thought Process: goal directed thought process Thought Content: reality based without delusions Suicidal Thoughts: denies suicidal thoughts Homicidal Thoughts: denies homicidal thoughts Hallucinations: no auditory hallucinations and no visual hallucinations Cognition: attention grossly intact and language grossly intact Estimated Intelligence: consistent with education level Insight: + limited insight Judgment: + limited judgement Exam Statement: A physical exam was performed on the medical floor by Dr. Boucher for the purposes of medical clearance, additional inpatient PE on file. I accept those exams as correct and adequate for the purposes of the inpatient physical exam. Results & Data ([facility]) Laboratory Results see medical admission Current Inpatient Medications Current Inpatient Medications: Current Inpatient Medications Acetaminophen (Acetaminophen 325 Mg Tab) 650 mg PO Q4H PRN PRN Reason: Headache or Minor Fever Stop: 11/12/22 13:56 Al Hydrox/Mg Hydrox/Simethicone (Aluminum/Magnesium Susp 30 Ml Udc) 30 ml PO Q4H PRN PRN Reason: GI Upset Stop: 11/12/22 13:56 Amlodipine Besylate (Amlodipine Besylate 5 Mg Tab) 5 mg PO DAILY CORAL Stop: 11/13/22 08:59 Bismuth Subsalicylate (Bismuth Subsalicylate Liqd 236 Ml) 15 ml PO PRN PRN PRN Reason: Loose Stool Stop: 11/12/22 13:56 Dextrose (Dextrose 50% 50 Ml Syringe) 25 - 50 ml IV UD PRN; Protocol PRN Reason: Hypoglycemia Protocol Stop: 11/12/22 14:14 Duloxetine HCl (Duloxetine Hcl 20 Mg Cap) 20 mg PO ONE ONE Stop: 10/13/22 14:51 Duloxetine HCl (Duloxetine Hcl 30 Mg Cap) 30 mg PO QAM CORAL Stop: 11/13/22 08:59 Glucagon (Glucagon For Inj 1 Mg Vial) 1 mg IM UD PRN; Protocol PRN Reason: Hypoglycemia Protocol Stop: 11/12/22 14:14 Glucose (Glucose 40% Gel 15 Gm Tube) 15 - 30 gm PO UD PRN; Protocol PRN Reason: Hypoglycemia Protocol Stop: 11/12/22 14:14 Glucose (Glucose 10 Tab/Tube) 4 - 8 tab PO UD PRN; Protocol PRN Reason: Hypoglycemia Protocol Stop: 11/12/22 14:14 Hydroxyzine HCl (Hydroxyzine Hcl 25 Mg Tab) 50 mg PO HSZ PRN PRN Reason: Insomnia Stop: 11/12/22 13:56 Hydroxyzine HCl (Hydroxyzine Hcl 25 Mg Tab) 25 mg PO Q4H PRN PRN Reason: Anxiety Stop: 11/12/22 13:56 Insulin Aspart (Insulin Aspart Per Unit Charge) 0 units SC ACHS CORAL Stop: 11/12/22 17:14 Insulin Glargine (Lantus Per Unit Charge) 0 units SC HS CORAL; Protocol Stop: 11/12/22 21:59 Magnesium Hydroxide (Magnesium Hydroxide Susp 30 Ml Udc) 30 ml PO DAILY PRN PRN Reason: Constipation Stop: 11/12/22 13:56 Miscellaneous (Carbohydrates For Hypoglycemia ) 15 - 30 gm PO UD PRN PRN Reason: Hypoglycemia Treatment Stop: 11/12/22 14:14 Miscellaneous Information (Pharmacy Glycemic Mgmt Consult) 1 each N/A UD PRN; Protocol PRN Reason: Consult Stop: 11/12/22 13:59 Polyethylene Glycol (Polyethylene (Miralax) 17 Gm Pack) 17 gm PO DAILY PRN PRN Reason: Constipation Stop: 11/12/22 14:49 Sodium Chloride (Sodium Chloride 0.65% Na Soln 45 Ml ([place]y)) 1 - 2 sprays NA PRN PRN PRN Reason: Nasal Dryness/Congestion Stop: 11/12/22 13:56
[2022-10-13] MEDS: INSULIN ASPART PER UNIT CHARGE SC SCH ×2 (18:04→22:10)
[2022-10-13] MEDS: ACETAMINOPHEN 325 MG TAB PO PRN (21:11)
[2022-10-13] MEDS: LANTUS PER UNIT CHARGE SC SCH (22:12)
[2022-10-14] MEDS: INSULIN ASPART PER UNIT CHARGE SC SCH ×4 (09:01→20:42)
[2022-10-14] MEDS: amLODIPine BESYLATE 5 MG TAB PO SCH (09:01)
[2022-10-14] MEDS: DULoxetine HCL 30 MG CAP PO SCH (09:01)
--- NOTE | 2022-10-14 12:00 | Psychiatric Progress Note ---
Date of Service October 14, 2022 Impression / Recommendations Impression 57 yo male with long hx of substance abuse, depressive symptoms, decline in caring for self complicating underlying medical. Denies active SI in hospital but minimizing his self medication and lack of self care. 10/14/2022: poor functioning, hopeless (1) Major depression: (2) Polysubstance abuse: (3) Wound of lower extremity: (4) Diabetic neuropathy: (5) Hepatitis C: (6) H/O insulin dependent diabetes mellitus: Plan 10/13/22: loose stool overnight, unclear if related to antibiotics on med floor or initiation of Cymbalta, already received 30 mg today so will hold tomorrow am until reassessed. His Neurontin was being retitrated per medical and will be significantly increased today. Per d/c summary from hospitalist he should complete a course of oral Bactrim. Will start tonight since D complaint this am. D is not foul smelling/concerning for Cdif at this time so will wait on sending stool. 10/13/22: The patient was admitted to the [facility] ([facility] mental health unit) on q15 min checks (behavioral with suicide precautions) for safety. The patient will participate in group, recreational, and milieu therapies and will be offered additional individual and family sessions as clinically appropriate. Glycemic pharmacy consult. Wound nurse consult with hospitalist support prn. Risks/benefits/alternatives reviewed re: trial of Cymbalta. Agreed to start 20 mg today with plan for titration. Inventory Assets Strengths: cooperative with care on medical floor, expressive Needs: community resources, improved coping Suicide Risk Level Suicide Risk Level: Moderate (q15 min suicide checks) Risk Factors Assessment Male: Yes : Yes Do You Have Access To A Gun?: No (son secured) Health Problems: Yes Mental Health Diagnoses: Yes Substance Use Disorders: Yes Previous Attempt: No Previous Psychiatric Hospitalization: No Protective Factors Assessment Supportive Family: Yes Interval History Identifying Information CHELSY KC is a 57-year-old M who currently lives in [place], has a history of polysubstance abuse, and was admitted on 10/13/22 13:58 on a 201 voluntary commitment for depression and poor self care. Chief Complaint depression, loose stool Review of Systems Sleep Information Total Hours of Sleep: 7.25 Meal Information Percent Meal Consumed - Breakfast: 0 Percent Meal Consumed - Dinner: 100 Nutrition Comment: GI upset; fluids provided Subjective Subjective Patient was seen & assessed and interval progress reviewed with treatment team. Patient stated he was "up all night" with D, doesn't match shift engineer report. Regardless states his liquid stools are resolving (he had been constipated). Easily overwhelmed. Still feels a burden with little motivation toward self care. Physical Exam Psychiatric Orientation: alert and oriented x 3 Apperance: appropriately dressed and appropriately groomed Eye Contact: good eye contact Motor Behavior: no abnormal motor movements Speech: normal rate/rhythm/volume of speech Affect: + depressed affect Mood: + depressed mood Thought Process: goal directed thought process Thought Content: reality based without delusions Suicidal Thoughts: denies suicidal thoughts Homicidal Thoughts: denies homicidal thoughts Hallucinations: no auditory hallucinations and no visual hallucinations Cognition: attention grossly intact and language grossly intact Estimated Intelligence: consistent with education level Insight: + limited insight Judgment: + limited judgement Vital Signs (Past 24 Hours) Last Vital Signs Temp 36.8 C 10/14/22 06:52 Pulse 87 10/14/22 06:53 Resp 16 10/14/22 06:52 BP 148/93 H 10/14/22 06:53 Pulse Ox 98 10/13/22 14:55 O2 Del Method Room Air 10/13/22 14:55 Results & Data ([facility]) Laboratory Results Laboratory Results - last 24 hr 10/13/22 10/13/22 10/14/22 17:17 21:07 08:40 POC Glucose 176 H 117 H 130 H Current Inpatient Medications Current Inpatient Medications: Current Inpatient Medications Acetaminophen (Acetaminophen 325 Mg Tab) 650 mg PO Q4H PRN PRN Reason: Headache or Minor Fever Stop: 11/12/22 13:56 Last Admin: 10/13/22 21:11 Dose: 650 mg Al Hydrox/Mg Hydrox/Simethicone (Aluminum/Magnesium Susp 30 Ml Udc) 30 ml PO Q4H PRN PRN Reason: GI Upset Stop: 11/12/22 13:56 Amlodipine Besylate (Amlodipine Besylate 5 Mg Tab) 5 mg PO DAILY [facility] Stop: 11/13/22 08:59 Last Admin: 10/14/22 09:01 Dose: 5 mg Bismuth Subsalicylate (Bismuth Subsalicylate Liqd 236 Ml) 15 ml PO PRN PRN PRN Reason: Loose Stool Stop: 11/12/22 13:56 Dextrose (Dextrose 50% 50 Ml Syringe) 25 - 50 ml IV UD PRN; Protocol PRN Reason: Hypoglycemia Protocol Stop: 11/12/22 14:14 Duloxetine HCl (Duloxetine Hcl 30 Mg Cap) 30 mg PO QAM [facility] Stop: 11/13/22 08:59 Last Admin: 10/14/22 09:01 Dose: 30 mg Gabapentin (Gabapentin 600 Mg Tab) 600 mg PO TID [facility] Stop: 11/13/22 13:59 Glucagon (Glucagon For Inj 1 Mg Vial) 1 mg IM UD PRN; Protocol PRN Reason: Hypoglycemia Protocol Stop: 11/12/22 14:14 Glucose (Glucose 40% Gel 15 Gm Tube) 15 - 30 gm PO UD PRN; Protocol PRN Reason: Hypoglycemia Protocol Stop: 11/12/22 14:14 Glucose (Glucose 10 Tab/Tube) 4 - 8 tab PO UD PRN; Protocol PRN Reason: Hypoglycemia Protocol Stop: 11/12/22 14:14 Hydroxyzine HCl (Hydroxyzine Hcl 25 Mg Tab) 50 mg PO HSZ PRN PRN Reason: Insomnia Stop: 11/12/22 13:56 Hydroxyzine HCl (Hydroxyzine Hcl 25 Mg Tab) 25 mg PO Q4H PRN PRN Reason: Anxiety Stop: 11/12/22 13:56 Insulin Aspart (Insulin Aspart Per Unit Charge) 0 units SC [facility] Stop: 11/12/22 17:14 Last Admin: 10/14/22 09:01 Dose: Not Given Insulin Glargine (Lantus Per Unit Charge) 0 units SC HS [facility]; Protocol Stop: 11/12/22 21:59 Last Admin: 10/13/22 22:12 Dose: 8 units Magnesium Hydroxide (Magnesium Hydroxide Susp 30 Ml Udc) 30 ml PO DAILY PRN PRN Reason: Constipation Stop: 11/12/22 13:56 Miscellaneous (Carbohydrates For Hypoglycemia ) 15 - 30 gm PO UD PRN PRN Reason: Hypoglycemia Treatment Stop: 11/12/22 14:14 Miscellaneous Information (Pharmacy Glycemic Mgmt Consult) 1 each N/A UD PRN; Protocol PRN Reason: Consult Stop: 11/12/22 13:59 Polyethylene Glycol (Polyethylene (Miralax) 17 Gm Pack) 17 gm PO DAILY PRN PRN Reason: Constipation Stop: 11/12/22 14:49 Sodium Chloride (Sodium Chloride 0.65% Na Soln 45 Ml ([place])) 1 - 2 sprays NA PRN PRN PRN Reason: Nasal Dryness/Congestion Stop: 11/12/22 13:56 Trimethoprim/Sulfamethoxazole (Sulfa/Trimeth 400/80mg Tab) 1 tab PO Q12H [facility] Stop: 10/21/22 11:59 (5) Hepatitis C Hepatic coma status: without hepatic coma Viral hepatitis chronicity: unspec ified Qualified Code(s): B19.20 - Unspecified viral hepatitis C without hepatic coma
[2022-10-14] MEDS: GABAPENTIN 600 MG TAB PO SCH ×2 (14:27→20:45)
--- NOTE | 2022-10-14 14:30 | Pharmacy Report ---
Pharmacy Glycemic Short Note 2 - Date of Service October 14, 2022 - Glycemic Short BSG Results (Last 24 hours): 10/13/22 10/13/22 10/14/22 17:17 21:07 08:40 POC Glucose 176 H 117 H 130 H 10/14/22 12:17 POC Glucose 149 H OUTPATIENT ANTIDIABETIC REGIMEN: * Basaglar 50 units SC daily * HbA1c: 9.2% (10/12/22) ASSESSMENT: 10/14/22 * BSGs have been stable. Novolog parameters adjusted slightly this morning to provide less carb coverage, as BSGs trending down throughout the day. * Pt complained of diarrhea overnight. He did not eat breakfast this morning. * Will continue to follow and adjust regimen as indicated. 10/13/22 * Patient transferred to MHU unit. Pharmacy following for glycemic management starting 10/11. Patient received total of 29 units of insulin yesterday, of which 10 units were basal insulin. Had decreased basal insulin yesterday due to fasting BSG of 74 mg/dL * Fasting BSG 84 mg/dL despite previous basal decrease, will decrease further to 8 units at HS to hopefully avoid any AM hypoglycemia * Continue novolog CF/CR for now PLAN FOR INPATIENT GLYCEMIC CONTROL: * Hold outpatient oral diabetes medications * Basal insulin * Lantus 8-10 units daily HS * Bolus insulin * NovoLog per scale ACHS or Q6hrs while NPO * Goal Range: Low 110 mg/dL - High 140 mg/dL * Correction Factor: 25 mg/dL/unit * Nutritional / Prandial insulin per carb ratio of 1 unit per 9 grams CHO consumed
[2022-10-14] MEDS: LANTUS PER UNIT CHARGE SC SCH (20:44)
[2022-10-14] MEDS: SULFAMETHOXAZOLE/TRIMETHOPRIM DS 800/160MG TAB PO SCH (20:45)
[2022-10-15] MEDS: GABAPENTIN 600 MG TAB PO SCH ×3 (08:44→20:27)
[2022-10-15] MEDS: amLODIPine BESYLATE 5 MG TAB PO SCH (08:44)
[2022-10-15] MEDS: SULFAMETHOXAZOLE/TRIMETHOPRIM DS 800/160MG TAB PO SCH ×2 (08:45→20:27)
[2022-10-15] MEDS: INSULIN ASPART PER UNIT CHARGE SC SCH ×4 (08:49→20:26)
[2022-10-15] MEDS: ACETAMINOPHEN 325 MG TAB PO PRN (10:00)
[2022-10-15] MEDS: DULoxetine HCL 30 MG CAP PO SCH (11:54)
--- NOTE | 2022-10-15 12:05 | Psychiatric Progress Note ---
Date of Service October 15, 2022 Impression / Recommendations Impression 57 yo male with long hx of substance abuse, depressive symptoms, decline in caring for self complicating underlying medical. Denies active SI in hospital but minimizing his self medication and lack of self care. 10/15/2022: low motivation but denying SI. (1) Major depression: (2) Polysubstance abuse: (3) Wound of lower extremity: (4) Diabetic neuropathy: (5) Hepatitis C: (6) H/O insulin dependent diabetes mellitus: Plan 10/14/22: D resolved, resume Cymbalta trial, involve son in stay as main support. 10/13/22: loose stool overnight, unclear if related to antibiotics on med floor or initiation of Cymbalta, already received 30 mg today so will hold tomorrow am until reassessed. His Neurontin was being retitrated per medical and will be significantly increased today. Per d/c summary from hospitalist he should complete a course of oral Bactrim. Will start tonight since D complaint this am. D is not foul smelling/concerning for Cdif at this time so will wait on sending stool. 10/13/22: The patient was admitted to the [facility] ([facility] inpatient mental health unit) on q15 min checks (behavioral with suicide precautions) for safety. The patient will participate in group, recreational, and milieu therapies and will be offered additional individual and family sessions as clinically appropriate. Glycemic pharmacy consult. Wound nurse consult with hospitalist support prn. Risks/benefits/alternatives reviewed re: trial of Cymbalta. Agreed to start 20 mg today with plan for titration. Inventory Assets Strengths: cooperative with care on medical floor, expressive Needs: community resources, improved coping Suicide Risk Level Suicide Risk Level: Moderate (q15 min suicide checks) Risk Factors Assessment Male: Yes : Yes Do You Have Access To A Gun?: No (son secured) Health Problems: Yes Mental Health Diagnoses: Yes Substance Use Disorders: Yes Previous Attempt: No Previous Psychiatric Hospitalization: No Protective Factors Assessment Supportive Family: Yes Interval History Identifying Information CHELSY KC is a 57-year-old M who currently lives in [place], has a history of polysubstance abuse, and was admitted on 10/13/22 13:58 on a 201 voluntary commitment for depression and poor self care. Chief Complaint "I didn't feel like it" referring to groups/interpersonal interactions Review of Systems Sleep Information Total Hours of Sleep: 8.75 Meal Information Percent Meal Consumed - Breakfast: 0 Percent Meal Consumed - Lunch: 50 Percent Meal Consumed - Dinner: 100 Nutrition Comment: GI upset; fluids provided Subjective Subjective Patient was seen & assessed and interval progress reviewed with nursing and social work. Patient reports D resolved. Examined legs, shiny but no erythema or discharge, any open areas are scabbed. Nurse to update wound nurse. Patient out of his room yesterday only for meals, did not attend groups. Physical Exam Psychiatric Orientation: alert and oriented x 3 Apperance: appropriately dressed and appropriately groomed Eye Contact: good eye contact Motor Behavior: no abnormal motor movements Speech: normal rate/rhythm/volume of speech Affect: + depressed affect Mood: + depressed mood Thought Process: goal directed thought process Thought Content: reality based without delusions Suicidal Thoughts: denies suicidal thoughts Homicidal Thoughts: denies homicidal thoughts Hallucinations: no auditory hallucinations and no visual hallucinations Cognition: attention grossly intact and language grossly intact Estimated Intelligence: consistent with education level Insight: + limited insight Judgment: + limited judgement Vital Signs (Past 24 Hours) Last Vital Signs Temp 36.9 C 10/15/22 06:44 Pulse 88 10/15/22 06:45 Resp 16 10/15/22 06:44 BP 149/84 H 10/15/22 06:45 Pulse Ox 98 10/13/22 14:55 O2 Del Method Room Air 10/13/22 14:55 Results & Data (U) Laboratory Results Laboratory Results - last 24 hr 10/14/22 10/14/22 10/14/22 12:17 17:30 20:27 POC Glucose 149 H 145 H 225 H 10/15/22 10/15/22 08:07 11:58 POC Glucose 109 H 184 H Current Inpatient Medications Current Inpatient Medications: Current Inpatient Medications Acetaminophen (Acetaminophen 325 Mg Tab) 650 mg PO Q4H PRN PRN Reason: Headache or Minor Fever Stop: 11/12/22 13:56 Last Admin: 10/15/22 10:00 Dose: 650 mg Al Hydrox/Mg Hydrox/Simethicone (Aluminum/Magnesium Susp 30 Ml Udc) 30 ml PO Q4H PRN PRN Reason: GI Upset Stop: 11/12/22 13:56 Amlodipine Besylate (Amlodipine Besylate 5 Mg Tab) 5 mg PO DAILY [facility] Stop: 11/13/22 08:59 Last Admin: 10/15/22 08:44 Dose: 5 mg Bismuth Subsalicylate (Bismuth Subsalicylate Liqd 236 Ml) 15 ml PO PRN PRN PRN Reason: Loose Stool Stop: 11/12/22 13:56 Dextrose (Dextrose 50% 50 Ml Syringe) 25 - 50 ml IV UD PRN; Protocol PRN Reason: Hypoglycemia Protocol Stop: 11/12/22 14:14 Duloxetine HCl (Duloxetine Hcl 30 Mg Cap) 30 mg PO QAM [facility] Stop: 11/13/22 08:59 Last Admin: 10/15/22 11:54 Dose: 30 mg Gabapentin (Gabapentin 600 Mg Tab) 600 mg PO TID [facility] Stop: 11/13/22 13:59 Last Admin: 10/15/22 08:44 Dose: 600 mg Glucagon (Glucagon For Inj 1 Mg Vial) 1 mg IM UD PRN; Protocol PRN Reason: Hypoglycemia Protocol Stop: 11/12/22 14:14 Glucose (Glucose 40% Gel 15 Gm Tube) 15 - 30 gm PO UD PRN; Protocol PRN Reason: Hypoglycemia Protocol Stop: 11/12/22 14:14 Glucose (Glucose 10 Tab/Tube) 4 - 8 tab PO UD PRN; Protocol PRN Reason: Hypoglycemia Protocol Stop: 11/12/22 14:14 Hydroxyzine HCl (Hydroxyzine Hcl 25 Mg Tab) 50 mg PO HSZ PRN PRN Reason: Insomnia Stop: 11/12/22 13:56 Hydroxyzine HCl (Hydroxyzine Hcl 25 Mg Tab) 25 mg PO Q4H PRN PRN Reason: Anxiety Stop: 11/12/22 13:56 Insulin Aspart (Insulin Aspart Per Unit Charge) 0 units SC ACHS [facility] Stop: 11/12/22 17:14 Last Admin: 10/15/22 08:49 Dose: 7 units Insulin Glargine (Lantus Per Unit Charge) 0 units SC HS [facility]; Protocol Stop: 11/12/22 21:59 Last Admin: 10/14/22 20:44 Dose: 10 units Magnesium Hydroxide (Magnesium Hydroxide Susp 30 Ml Udc) 30 ml PO DAILY PRN PRN Reason: Constipation Stop: 11/12/22 13:56 Miscellaneous (Carbohydrates For Hypoglycemia ) 15 - 30 gm PO UD PRN PRN Reason: Hypoglycemia Treatment Stop: 11/12/22 14:14 Miscellaneous Information (Pharmacy Glycemic Mgmt Consult) 1 each N/A UD PRN; Protocol PRN Reason: Consult Stop: 11/12/22 13:59 Polyethylene Glycol (Polyethylene (Miralax) 17 Gm Pack) 17 gm PO DAILY PRN PRN Reason: Constipation Stop: 11/12/22 14:49 Sodium Chloride (Sodium Chloride 0.65% Na Soln 45 Ml ([place])) 1 - 2 sprays NA PRN PRN PRN Reason: Nasal Dryness/Congestion Stop: 11/12/22 13:56 Trimethoprim/Sulfamethoxazole (Sulfamethoxazole/Trimethoprim Ds 800/160mg Tab) 1 tab PO BID [facility] Stop: 10/21/22 20:59 Last Admin: 10/15/22 08:45 Dose: 1 tab (5) Hepatitis C Hepatic coma status: without hepatic coma Viral hepatitis chronicity: unspecified Qualified Code(s): B19.20 - Unspecified viral hepatitis C without hepatic coma
[2022-10-15] MEDS: LANTUS PER UNIT CHARGE SC SCH (20:24)
[2022-10-16] MEDS: INSULIN ASPART PER UNIT CHARGE SC SCH ×2 (08:45→11:43)
[2022-10-16] MEDS: SULFAMETHOXAZOLE/TRIMETHOPRIM DS 800/160MG TAB PO SCH (08:51)
[2022-10-16] MEDS: DULoxetine HCL 30 MG CAP PO SCH (08:51)
[2022-10-16] MEDS: amLODIPine BESYLATE 5 MG TAB PO SCH (08:51)
[2022-10-16] MEDS: GABAPENTIN 600 MG TAB PO SCH (08:51)
--- NOTE | 2022-10-16 09:08 | Discharge Summary ---
Date of Service October 16, 2022 History of Present Illness As per consult on medical floor 10/12/2022: Patient with a 20+ year history of drug abuse, initially heroin following use of prescribed opiates, later alcohol and meth. He expressed guilt to ED for CM for essentially abandoning son due to drug use/moves and now inability to contribute given physical limitations such as neuropathy. He has been using meth q 2-3 weeks for the past year and makes his own high proof alcohol which he consumes i n unknown amount. He also uses MJ daily. He reported self-medicating his depression with symptoms such as hopelessness and vegatative symptoms. He is noncompliant with his medications due to forgetfulness per report of son. Patient remains focussed on past occupational exposures as cause of his ulcerations/neuropathy rather than vascular causes or substances. He has reported thoughts to kill self in fall by instigating a hibernating bear. Denies active intent/plan to harm self but doesn't care if he doesn't wake up. Today the patient reports he remains depressed, doesn't feel like "doing much" yet at times will have restless thoughts. 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 He prefers to stay in his truck rather than truly live in his son's apartment as "cramped" with four kids and he is just getting to know his daughter in law. He lacks motivation to cook for self and is a lifelong "loner." Physical Exam Psychiatric See admission H&P and DOD assessment. Vital Signs (Past 24 Hours) Last Vital Signs Temp 36.9 C 10/16/22 06:00 Pulse 76 10/16/22 06:00 Resp 16 10/16/22 06:00 BP 130/81 10/16/22 06:51 Pulse Ox 98 10/13/22 14:55 O2 Del Method Room Air 10/13/22 14:55 Principal Diagnosis major depressive disorder Psychiatric Data See daily stay summary. In short, safety was maintained and the patient was cooperative with care. Medication changes included a trial of Cymbalta, retitrating his Neurontin, and continuing his antibiotics course for his cellulitis and he tolerated this well. A family session was held with the patient's son and safety plan was completed prior to discharge. Reviewed that glucose checks are BID and confirmed supplies, patient verbalized understanding of the decrease in his home insulin dose following consultation with the diabetic pharmacist. He is directed to abstain from substances. His recent use of meth is more self medication for his depression but brief interventions throughout his stay on the importance of abstinence, risks to his overall health. The patient is agreeable to outpatient counseling. Day of Discharge Assessment Today the patient voices readiness for discharge. They note improvement in mood and deny thoughts to harm self or others. Thoughts remain organized and they are improved from admission. There is no evidence of psychosis. They agree to take mediations as prescribed and keep follow-up appointments. They are stable for discharge to outpatient level of care. Transition of Care Transition Of Care Record: was reviewed with the patient Advance Directives Advance Directives Information Provided: Yes Advance Directives: No Mental Health Advance Directive: No Advance Directives on File: No Living Will: No Power of Supervisor Maintenance: No Advance Directives Reason:: Declines as Mental Health Visit. Suicide Risk Level Suicide Risk Level Comments: Suicide risk at discharge is deemed low as the patient is no longer requiring 24-hr monitoring, has a safety plan, and is free of suicidal ideation at discharge. Risk Factors Assessment Male: Yes : Yes Do You Have Access To A Gun?: No (son secured) Health Problems: Yes Mental Health Diagnoses: Yes Substance Use Disorders: Yes Previous Attempt: No Previous Psychiatric Hospitalization: No Protective Factors Assessment Supportive Family: Yes Tobacco Cessation at Discharge Tobacco Cessation Medication Prescribed at Discharge: Not Applicable/Non-Smoker Opioid Risk Protocol patient uses meth, no longer opiates for some time, he declines Narcan. Total Time Total Time Spent: Greater Than 30 Minutes Total Time Includes: Examination of the patient, Discharge Planning, Medication Reconciliation and Communication with other providers Discharge Data Lab Results 10/13/22 10/13/22 10/14/22 17:17 21:07 08:40 POC Glucose 176 H 117 H 130 H 10/14/22 10/14/22 10/14/22 12:17 17:30 20:27 POC Glucose 149 H 145 H 225 H 10/15/22 10/15/22 10/15/22 08:07 11:58 17:21 POC Glucose 109 H 184 H 133 H 10/15/22 10/16/22 20:01 08:08 POC Glucose 220 H 138 H Hospital Course (1) Major depression: (2) Polysubstance abuse: (3) Wound of lower extremity: (4) Diabetic neuropathy: (5) Hepatitis C: (6) H/O insulin dependent diabetes mellitus: Plan 10/14/22: D resolved, resume Cymbalta trial, involve son in stay as main support. 10/13/22: loose stool overnight, unclear if related to antibiotics on med floor or initiation of Cymbalta, already received 30 mg today so will hold tomorrow am until reassessed. His Neurontin was being retitrated per medical and will be significantly increased today. Per d/c summary from hospitalist he should complete a course of oral Bactrim. Will start tonight since D complaint this am. D is not foul smelling/concerning for Cdif at this time so will wait on sending stool. 10/13/22: The patient was admitted to the [facility] ([facility]) on q15 min checks (behavioral with suicide precautions) for safety. The patient will participate in group, recreational, and milieu therapies and will be offered additional individual and family sessions as clinically appropriate. Glycemic pharmacy consult. Wound nurse consult with hospitalist support prn. Risks/benefits/alternatives reviewed re: trial of Cymbalta. Agreed to start 20 mg today with plan for titration. Mental Health & Subst Abuse Tx Therapist Name of Therapist: Diazroadpriscilla Reyez Therapist's Date of Therapist Appointment: 11/05/22 Time of Therapist Appointment: 10:30 AM arrival time - bring ID and insurance Therapy Appointment Comment: [address] [place] [id number] Outside Contractor Sales [facility] Phone Number for Outside Contractor Sales: [phone] Date of Appointment with Outside Contractor Sales: 10/21/22 Time of Appointment with Outside Contractor Sales: 10:00 AM Case Management Appointment Comment: [address] [place] [id number] Post Discharge Appointments Primary Care Physician Name Of Family Doctor/PCP: [facility] - [facility] Date of Future Appointment with PCP: 10/26/22 Time of Appointment with PCP: 3:00 PM Provider Appointment Comment: [phone], [phone] Smoking Cessation Counseling Tobacco Cessation Medication Prescribed at Discharge: Not Applicable/Non-Smoker Contact Information Discharge Discharge Address: [address] [id number] Discharge Plan Discharge Items Patient Disposition: Home - Self-Care Reason For Visit: MDD Discharge Diagnosis: major depressive disorder Activity: Resume your previous activity Non-emergency contact: Primary Care Provider, Psychiatrist, Therapist and [employer] Systems Administrator Call non-emergency contact if: you have any medication questions and your symptoms worsen Follow-up/Referrals: Radha Monahan PA-C [Primary Care Provider] - Diet: Carb Consistent or DM2 Addtl Attending Provider Instructions: SPECIAL CARE INSTRUCTIONS: 1. Follow through with your scheduled aftercare appointments. If unable to keep an appointment, please call to reschedule. 2. Take your medication only as prescribed. Medication should not be changed or stopped without the approval of your doctor. In the event of worsening symptoms or concerns about side effects, contact your doctor immediately. 3. Utilize new healthy coping skills, anger management skills, and stress management skills learned during your hospitalization. Journal feelings and process them with a support person. Identify stressors or situations that may result in relapse, deterioration or inappropriate behaviors and develop a plan to deal with those issues. 4. If your coping skills are ineffective and you are in crisis, contact your outpatient providers for direction. If unable to reach your providers, please call the [facility] CRISIS LINE AT , go to the [facility] walk-in center at [address], [address], [place], or go to the closest Emergency Room. 5. Avoid alcohol and un-prescribed drugs. 6. You have been provided with the Mental Health Advance Directives Pamphlet for your review. 7. Your condition is stable for discharge to outpatient level of care, but recovery is an ongoing process. Ifthoughts to harm yourself or others return, follow the safety plan developed during your stay. Planning for a safe return home includes securing weapons. Our treatment team recommends weaponsbe removed from the home until your outpatient provider reassesses your progress. In rare cases where the items themselvescannot be removed, guns and ammunitionshould be secured separatelyand keys stored by a reliable personoutside of the home. If you were admitted on an involuntary commitment, the police or other legal authorities may be involved in this process. AFTERCARE APPOINTMENTS: * Please call your insurance company prior to your scheduled appointment to confirm your aftercare providers are covered. Take your insurance information to your appointments. WHO TO CALL AND WHEN: Medical Emergencies: For questions or emergencies related to your hospital stay, please contact the Inpatient Behavioral Health Unit at [phone]. A cryogenic transport driver is on-call 16/11 for the Behavioral Health Unit for emergencies At any time you feel your situation is an emergency, you may also call 911 immediately. Addtl Nursing Department Chairperson Provider Instructions: see your primary care provider for additional adjustment of your insulin. The progressive assembler and fitter is encouraging you to ask your case briefer (outpatient) about SNAP benefits so better able to manage diet. Please continue to check your blood sugars twice a day. Re: the supplies requested by your son--alcohol swabs were sent to the pharmacy, routine bandaids do not appear to be covered by your insurance plan. Compression socks were not sent as will be at the discretion of your primary care doctor depending on the appearance of your skin infection. Currently you have minimal to no swelling of lower extremities but keeping your legs elevated when you are sitting would likely help to prevent from recurring. Pending Studies at Discharge: No Stand-Alone Forms: [facility] Prolify, Smoking Cessation Medications and DC Order Prescriptions: New sulfamethoxazole-trimethoprim [Bactrim DS] 800-160 mg Tablet 1 tab PO BID Qty: 9 0RF Rx Instructions: take until gone for skin duloxetine 30 mg Capsule,Delayed Release(Dr/Ec) 30 mg PO QAM Qty: 30 0RF alcohol swabs [Alcohol Pads] Pads, Medicated 1 pad topical BID Qty: 100 0RF Continued omeprazole 20 mg capsule,delayed release(DR/EC) 20 mg PO DAILY gabapentin 800 mg tablet 800 mg PO QID amlodipine 5 mg Tablet 5 mg PO DAILY polyethylene glycol 3350 [Miralax] 17 gram/dose Powder 17 g PO DAILY PRN (Reason: Constipation) Changed insulin glargine [Basaglar KwikPen U-100 Insulin] 100 unit/mL (3 mL) Insulin Pen 30 unit SUBCUT QAM Qty: 15 0RF Discharge Orders: Discharge Order (Routine); Ordered 10/16/22 Ordered By: Sabrina Glass Admission Data Admit Date/Time: 10/13/22 13:58 Attending Provider: Sabrina Glass Admit Provider: Sabrina Glass Primary Care Provider: Radha Monahan Other Interventions: Discharge Summary Assessment (RN) Last Done: 10/16/22 11:25 PSY Interdisciplinary Discharge Planning Last Done: 10/16/22 10:46 Coding Level of Care Code 23319 D/C day mgmt > 30 min Diagnoses Major depression F32.9 Polysubstance abuse F19.10 Wound of lower extremity S81.809A Diabetic neuropathy E11.40 Hepatitis C B19.20 Hepatic coma status: without hepatic coma Viral hepatitis chronicity: unspecified H/O insulin dependent diabetes mellitus Z86.39
[2022-10-16] MEDS ORDERED: LANTUS PER UNIT CHARGE SC ONE (11:30)
[2022-10-16] MEDS ORDERED: DESTROY THIS MEDICATION ONE (11:31)
== END 2022-10-16 12:00 | disposition home or self-care (01) | DRG 881 ==
LOC: 3S 13:58